=== PATIENT | male | born 1970 | race Caucasian/White ===

== ENCOUNTER 2021-02-08 07:15 | Outpatient (REF) | payer BC, SELFPAY ==
[2021-02-08 08:04] LABS: Alanine Aminotransferase 11 U/L (0-40); Albumin Level 4.3 g/dL (3.5-5.0); Alkaline Phosphatase 70 U/L (39-117); Anion Gap 12 (12-20); Aspartate Amino Transferase 16 U/L (5-37); Bilirubin Total 0.6 mg/dL (0.0-1.0); Blood Urea Nitrogen 10 mg/dL (9-16); Calcium 9.3 mg/dL (8.4-10.2); Carbon Dioxide 26 mmol/L (22-29); Chloride 108 mmol/L (96-108); Cholesterol 200 mg/dL; Estimated Glomerular Filt Rate > 60; Glucose Fasting 94 mg/dL (60-99); HDL Cholesterol 39 mg/dL; LDL Cholesterol Calculated 128 mg/dl; Potassium 4.6 mmol/L (3.3-5.1); Sodium 141 mmol/L (135-145); Triglycerides 165 mg/dL
[2021-02-08 08:27] LABS: TSH reflex Free T4 1.59 uIU/mL (0.32-4.0)
[2021-02-09 05:57] LABS: LDL Cholesterol Direct 125 mg/dL (<100)
== END 2021-02-08 07:16 | disposition home or self-care (01) ==
LOC: HO.LAB 07:15
PROVIDERS: PCP Family Medicine; Visit Provider Family Medicine
DX: Z00.00 Encounter for general adult medical examination without abnormal findings (principal); E78.9 Disorder of lipoprotein metabolism, unspecified
CPT/HCPCS: 36415; 80053; 80061; 83721; 84443

== ENCOUNTER 2021-05-26 08:45 | Outpatient (REF) | payer BC, SELFPAY ==
[2021-05-26 12:10] LABS: Anion Gap 10 (12-20); Blood Urea Nitrogen 13 mg/dL (9-16); Calcium 9.7 mg/dL (8.4-10.2); Carbon Dioxide 28 mmol/L (22-29); Chloride 106 mmol/L (96-108); Cholesterol 226 mg/dL; Estimated Glomerular Filt Rate > 60; Glucose Random 96 mg/dL (60-115); HDL Cholesterol 44 mg/dL; LDL Cholesterol Calculated 138 mg/dl; Potassium 5.1 mmol/L (3.3-5.1); Sodium 139 mmol/L (135-145); Triglycerides 220 mg/dL
[2021-05-26 12:32] LABS: Prostate Specific Antigen Scr 1.01 ng/mL (<0.05-4.0)
[2021-05-27 19:10] LABS: LDL Cholesterol Direct 143 mg/dL (<100)
== END 2021-05-26 08:46 | disposition home or self-care (01) ==
LOC: HO.WFDLDS 08:45
PROVIDERS: Visit Provider Family Medicine
DX: Z00.00 Encounter for general adult medical examination without abnormal findings (principal); Z12.5 Encounter for screening for malignant neoplasm of prostate; E78.5 Hyperlipidemia, unspecified
CPT/HCPCS: 36415; 80048; 80061; 83721; 84153

== ENCOUNTER 2021-08-30 07:21 | Outpatient (REF) | payer BC, SELFPAY ==
[2021-08-30 08:36] LABS: Anion Gap 14 (12-20); Blood Urea Nitrogen 13 mg/dL (9-16); Calcium 9.2 mg/dL (8.4-10.2); Carbon Dioxide 23 mmol/L (22-29); Chloride 107 mmol/L (96-108); Cholesterol 203 mg/dL; Estimated Glomerular Filt Rate > 60; Glucose Random 90 mg/dL (60-115); HDL Cholesterol 41 mg/dL; LDL Cholesterol Calculated 128 mg/dl; Potassium 4.5 mmol/L (3.3-5.1); Sodium 139 mmol/L (135-145); Triglycerides 173 mg/dL
[2021-09-05 19:02] LABS: Testosterone, Total 768 ng/dL (250-1100)
== END 2021-08-30 07:22 | disposition home or self-care (01) ==
LOC: HO.LAB 07:21
PROVIDERS: PCP Family Medicine; Visit Provider Family Medicine
DX: Z00.00 Encounter for general adult medical examination without abnormal findings (principal); N52.9 Male erectile dysfunction, unspecified; E78.5 Hyperlipidemia, unspecified
CPT/HCPCS: 36415; 80048; 80061; 84402; 84403

== ENCOUNTER 2022-01-24 07:07 | Outpatient (REF) | payer BC, SELFPAY ==
[2022-01-24 08:22] LABS: Alanine Aminotransferase 18 U/L (0-40); Albumin Level 4.4 g/dL (3.5-5.0); Alkaline Phosphatase 72 U/L (39-117); Anion Gap 17 (12-20); Aspartate Amino Transferase 17 U/L (5-37); Bilirubin Total 0.6 mg/dL (0.0-1.0); Blood Urea Nitrogen 15 mg/dL (9-16); Calcium 9.1 mg/dL (8.4-10.2); Carbon Dioxide 24 mmol/L (22-29); Chloride 105 mmol/L (96-108); Cholesterol 228 mg/dL; Estimated Glomerular Filt Rate > 60; Glucose Fasting 94 mg/dL (60-99); HDL Cholesterol 44 mg/dL; LDL Cholesterol Calculated 159 mg/dl; Potassium 4.5 mmol/L (3.3-5.1); Sodium 141 mmol/L (135-145); Total Protein 7.1 g/dL (6.5-8.0); Triglycerides 129 mg/dL
[2022-01-24 08:46] LABS: Prostate Specific Antigen Scr 1.02 ng/mL (<0.05-4.0); TSH reflex Free T4 2.04 uIU/mL (0.32-4.0)
[2022-01-24 09:41] LABS: Appearance Urine Clear; Color Urine Yellow; Glucose Urine UA Negative (Negative); Leukocyte Esterase Urine Negative (Negative); Nitrite Urine Negative (Negative); PH 5.5 (5.0-9.0); Urine Blood Negative (Negative); Urine Ketones Negative (Negative); Urine Protein Negative (Neg-Trace)
== END 2022-01-24 07:08 | disposition home or self-care (01) ==
LOC: HO.LAB 07:07
PROVIDERS: PCP Family Medicine; Visit Provider Family Medicine
DX: Z00.00 Encounter for general adult medical examination without abnormal findings (principal); Z12.5 Encounter for screening for malignant neoplasm of prostate
CPT/HCPCS: 36415; 80053; 80061; 81003; 84153; 84443

== ENCOUNTER 2022-05-02 07:30 | Outpatient (REF) | payer BC, SELFPAY ==
--- NOTE | ~2022-05-02 | XR_ITS ---
EXAMINATION: XR CHEST CLINICAL INFORMATION: Nicotine dependence COMPARISON: None TECHNIQUE: 2 views of the chest were obtained. FINDINGS: The lungs are well-expanded and clear. The heart size and pulmonary vascularity is normal. No gross bony abnormality seen. XR/XR chest 2V IMPRESSION: Unremarkable chest exam.
[2022-05-02 09:04] LABS: Cholesterol 167 mg/dL; HDL Cholesterol 41 mg/dL; LDL Cholesterol Calculated 97 mg/dl; Triglycerides 146 mg/dL
== END 2022-05-02 07:31 | disposition home or self-care (01) ==
LOC: HO.LAB 07:30
PROVIDERS: Visit Provider Family Medicine
DX: Z00.00 Encounter for general adult medical examination without abnormal findings (principal); E78.5 Hyperlipidemia, unspecified; F17.200 Nicotine dependence, unspecified, uncomplicated
CPT/HCPCS: 36415; 71046; 80061

== ENCOUNTER 2022-08-07 10:00 | Outpatient (RCR) | payer BC, SELFPAY ==
[2022-06-12 11:01] VITALS: BP 142/93; PULSE 81
--- NOTE | 2022-06-12 11:54 | MHC.PT.EP ---
[facility] [place] Office [place] Office [place] Office [address] Kaycee Hahn [address] [phone] F: [phone] F: [phone] F: [phone] F: [phone] Physical Therapy Plan of Care Date of Evaluation: Date of Surgery: NA Diagnosis: Dorsalgia Assessment: Sabino is a 52 year old male who is referred to PT for dorsalgia . He reports of having pain along R shoulder blade for about a year. He denies any trauma or falls and reports of having pain only with driving his tractor trailer. He has no pain with any other ADLS or driving his car. On PT examinations he reports of having 8/10 pain along medial border of R scapula, TTP along thoracic paraspinals, decreased thoracic ROM, decreased scap muscle strength and altered posture. Due to these impairments he has pain with driving his tractor trailer. He lives with his family and is independent with all ADLS. 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 He would benefit from skilled PT to address the aforementioned impairments and improve tolerance to functional activities. Frequency and Duration: The patient will be seen 2/week for 5 weeks Short Term Goals: 1. Pt will have 50% decrease in pain which will enable him to drive without changing his posture for an hour in 2 weeks. 2. Pt will be able to move trunk through all planes of motion without pain in 3 weeks. Detention Goals: 1. Pt will demonstrate an increase in muscle strength by 1 grade which will enable him to drive without pain in 5 weeks. 2. Pt will be independent with HEP for symptom management and maintenance following d/c in 5 weeks. Treatment Plan: Modalities to reduce pain, spasms and effusion. Manual therapy to restore motion and function. Therapeutic exercise to improve strength and flexibility. Neuromuscular re-education for posture and balance. Therapeutic activities to return to functional activities of daily living. Electronically signed by: Charisma Post PT DPT Please sign and return to therapist. Thank you for your referral.
--- NOTE | 2022-08-07 11:07 | MHC.PT.DC ---
[facility] [place] Office [place] Office [place] Office [address] Kaycee Hahn [address] [phone] F: [phone] F: [phone] F: [phone] F: [phone] Physical Therapy Discharge Report Diagnosis: Dorsalgia Date of Surgery: NA Date of Evaluation: 06/12/22 Date of Discharge: 08/07/22 Treatments to Date: 5 Cancellations to Date: 0 No Shows to Date: Discharge Status: Improved Function Independent with HEP Discharge Summary: Sabino has completed 5 PT visits. He has noted significant improvements and is independent with all his HEP. He stated that due to his work schedule and time off needed to attend PT he requested d/c today. He stated that his pain comes in very sporadically and he is aware of what he has to do to manage his symptoms. I reviewed all his HEP with him. Sabino is being d/c from PT today. Electronically signed by: Charisma Post, PT DPT Please sign and return to therapist. Thank you for your referral.
== END 2022-08-07 11:08 | disposition home or self-care (01) ==
LOC: HO.PT 10:00
PROVIDERS: PCP Family Medicine; Visit Provider Family Medicine
DX: M54.9 Dorsalgia, unspecified (principal)
CPT/HCPCS: 97110; 97112; 97140; 97161; 97530

== ENCOUNTER 2023-02-05 08:34 | Outpatient (AMB) | payer BC, SELFPAY ==
[2023-02-05 08:45] VITALS: BP 122/62; PULSE 89; RESP 13; TEMP 37.1; O2SAT 98; BMI 24.0
--- NOTE | 2023-02-05 08:45 | MHC.PC.OV ---
Vital Signs 02/05/23 08:45 Height 6 ft Weight 177 lb 4 oz BMI 24.0 BP 122/62 Blood Pressure Location Rt brachial Position Sitting Respiration 13 Pulse 89 Pulse Source Pulse Oximeter Temp 98.7 F Temp Source Oral Pulse Oximetry (%) 98 Oxygen Delivery Method Room Air Intake Visit Reasons: CPE with f/u labs and health maintenance Intake Note: Patient is here for a yearly physical and he reports he did not get labs done recently but will do them over the weekend. Patient reports his told him he is showing signs of depression. Patient reports he is scheduled for a colonoscopy in April 2023. 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 Medication List - Last Reconciled 02/05/23 by Hugh Raphael MD atorvastatin 20 mg PO BEDTIME 30 days bisacodyl (Dulcolax (bisacodyl)) 10 mg (2 x 5 mg) PO ONCE 1 day peg 3350-electrolytes [id number] -5.86 gram 240 mL PO Q10M sildenafil 100 mg PO DAILY PRN 30 days Tobacco use date assessed: 02/05/23 Dental Screening Dental Screen Date: 02/05/23 Did you have a dental visit in the last 12 months?: Yes Did you have a dental problem in the last 6 months where you did not have access to dental care?: No Was dental information given to patient?: Patient has dentist HPI CPE with f/u labs and health maintenance HPI Details 52 y/o male presents for a CPE with f/u labs and health maintenance. No recent labs to review. Questionnaire tested positive for anxiety/depression. He notes ongoing stressors. HPI Comments History of Present Illness Details Documentation assistance for Hugh Raphael MD, was provided by Demario Hsieh,?Director Agricultural Services on 02/05/2023 9:48 AM EST. Aponte, Dr. Raphael, have read, observed, and verified documentation.? [facility] Medical History Tennis elbow syndrome Surgical History History of left knee surgery Family History Mother Substance use disorder Father No problems noted. 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 1. Little interest or pleasure in doing things: not at all 2. Feeling down, depressed, or hopeless: not at all 3. Trouble falling or staying asleep, or sleeping too much: several days 4. Feeling tired or having little energy: not at all 5. Poor appetite or overeating: not at all 6. Feeling bad about yourself - or that you are a failure or have let yourself or your family down: several days 7. Trouble concentrating on things, such as reading the newspaper or watching television: several days 8. Moving or speaking so slowly that other people could have noticed. Or the opposite - being so fidgety or restless that you have been moving around a lot more than usual: not at all 9. Thoughts that you would be better off or of hurting yourself in some way: not at all Total score: 3 Depression Screening Interpretation: Negative Depression Screening Done: Yes 54922 - PHQ-9 Billing: Yes Source: Developed by Drs. Allen Lao, Susy Copeland, Alton Robison and colleagues, with an educational suman from [employer]. Thrive Questionnaire Date Thrive assessed: 05/08/22 YONATAN-7 AMB Questionnaire YONATAN-7 Date YONATAN - 7 assessed: 02/05/23 Feeling nervous, anxious, or on edge: 1 = Several days Not being able to stop or control worryin = Several days Worrying too much about different things: 1 = Several days Trouble relaxin = Not at all Being so restless that it is hard to sit still: 0 = Not at all Becoming easily annoyed or irritable: 2 = More than half the days Feeling afraid as if something awful might happen: 1 = Several days Total YONATAN-7 score (0-4 normal; 5-9 mild; 10-14 moderate; 15-21 severe): 6 Source: Developed by Drs. Allen Lao, Susy Copeland, Alton Robison and colleagues, with an educational suman from [employer]. YONATAN-7 Assessment Billing YONATAN-7 Assessment Tool: YONATAN-7 Assessment 42205 Review of Systems Const Denies chills, Denies fatigue, Denies fever(s), Denies headache(s) and Denies weakness Eyes Denies change in vision ENT Denies dizziness, Denies headache(s), Denies hearing loss, Denies nasal congestion, Denies sinus pain, Denies sinus pressure and Denies sore throat Card Denies chest pain, Denies lightheadedness, Denies dyspnea and Denies other (palpitations) Resp Denies cough, Denies dyspnea and Denies wheezing GI Denies abdominal pain, Denies melena, Denies hematochezia, Denies change in bowel habits, Denies dyspepsia and Denies nausea Denies hematuria and Denies dysuria Musc Denies abnormal gait, Denies myalgias, Denies arthralgias, Denies numbness and Denies tingling Skin/Breast Denies rash, Denies unusual bruising and Denies wounds Neuro Denies abnormal gait, Denies dizziness, Denies headache(s), Denies memory loss, Denies numbness, Denies Sensory deficit (Neuro), Denies tingling and Denies weakness Psych Reports anxiety, Reports depression and Denies memory loss Endo Denies cold intolerance, Denies fatigue, Denies heat intolerance, Denies polydipsia and Denies polyuria Trevor/Lymph Denies easy bleeding and Denies easy bruising Aller/Immun Denies wheezing Physical exam (Primary Care) Vital Signs: Last Vital Signs Temp 98.7 F 02/05/23 08:45 Pulse 89 02/05/23 08:45 Resp 13 02/05/23 08:45 BP 122/62 02/05/23 08:45 Pulse Ox 98 02/05/23 08:45 Oxygen Delivery Method Room Air 02/05/23 08:45 BMI result Body Mass Index 24.0 Tobacco/Smoking Status: Tobacco use Status Tobacco use date assessed 02/05/23 02/05/23 08:53 Patient Tobacco Use Status Current someday Tobacco 02/05/23 08:45 Tobacco use type Cigarette,Cigar 02/05/23 08:45 e-Cigarette/Vaping Use Never Used 02/05/23 08:45 PHQ-9: PHQ-9 Score PHQ-9: Total score 3 02/05/23 09:45 Depression Screening Interpretation: Negative Thrive Assessment: Date of Thrive Assessment Date Thrive assessed 05/08/22 02/05/23 08:45 Const General: no acute distress, well developed, alert and awake Nutritional Appearance: well nourished Orientation/consciousness: patient oriented x3 HENMT Head: Yes normocephalic and Yes atraumatic Ears: hearing grossly normal bilaterally and TM's normal bilaterally General nose exam: Normal external nose present and Normal nares present Mouth: Normal oral and palatal mucosa present and moist mucous membranes Teeth and gingiva: dentition normal Throat: Yes posterior oropharynx normal Eyes General: appearance normal, both eyes and all related structures Pupils: Equal, round and reactive pupils present and Pupil accommodation reflex normal EOM: EOMs intact bilaterally Neck Neck: Yes normal visual inspection, Yes no lymphadenopathy and Yes trachea midline Thyroid: Thyroid normal Carotids: no bruits Lymphatic: no lymphadenopathy noted Chest Chest palpation & inspection: normal inspection of the chest Resp Effort & Inspection: normal respiratory effort Auscultation: clear to auscultation bilaterally Cardio Rate: regular rate Rhythm: regular rhythm Heart sounds: S1 normal heart sound present, S2 normal heart sound present, no gallops, no murmurs and no rubs Bruits: no abdominal aortic bruits and no carotid bruits GI Palpation (GI): No Abdominal aortic bruit present, Soft to palpation, nontender, No hepatosplenomegaly present and No Rebound tenderness present Auscultation: normal bowel sounds General: Yes no CVA tenderness Back/Spine/Pelvis Back: no CVA tenderness Cervical Spine: cervical ROM normal and No Cervical spine tenderness Thoracic/Lumbar Spine: thoraco-lumbar ROM normal, No pain with thoraco-lumbar ROM, No thoracic spinal tenderness and No lumbar spinal tenderness Skin Lesions: no lesions Rashes: no rashes Trauma: no lacerations or abrasions Wounds: no wounds Nails: normal Neuro General: patient oriented x3 Cranial nerves: Yes Equal, round and reactive pupils present Cognition (Neuro): normal cognition Gait exam (Neuro): Normal gait present Motor exam (neuro): 5/5 motor strength present throughout Sensory Exam: No Sensory deficit (Neuro) Deep tendon reflexes (DTR's): Right patellar reflex intensity grade: 2+ and Left patellar reflex intensity grade: 2+ Extrem General: Yes normal to inspection and No edema Psych Appearance: grossly normal Affect: Anxious affect present Attitude: cooperative Thought process: Normal thought process present Assessment and Plan Assessment & Plan (1) Adult general medical exam: Code(s): Z00.00 - Encounter for general adult medical examination without abnormal findings Plan: 52-year-old?male?presents?for?complete?physical?exam Encouraged?healthy?diet?with?active?lifestyle?and?plenty?of?exercise (2) Anxiety and depression: Code(s): F41.9 - Anxiety disorder, unspecified; F32.A - Depression, unspecified Plan: Patient?notes?stressors?and?anxiety Referred?to?nurse?navigator?for?connection?with?a?therapist Start?citalopram (3) Screening for prostate cancer: Code(s): Z12.5 - Encounter for screening for malignant neoplasm of prostate Plan: Check?PSA Mild?changes?in?stream.??If?borderline,?may?need?KARLOINA (4) Screening for colon cancer: Code(s): Z12.11 - Encounter for screening for malignant neoplasm of colon Plan: Patient?is?scheduled?for?colonoscopy?in?April Orders: Orders Comprehensive [place]. Panel Fast Today Z00.00 - Encounter for general adult medical examination without abnormal findings Microalbumin, Random (w Creat) Today I10 - Essential (primary) hypertension Lipid Panel Today Z00.00 - Encounter for general adult medical examination without abnormal findings Prostate Specific Antigen Scr Today Z12.5 - Encounter for screening for malignant neoplasm of prostate TSH reflex Free T4 Today Z00.00 - Encounter for general adult medical examination without abnormal findings UA and rflx microscopic Today Z00.00 - Encounter for general adult medical examination without abnormal findings Referrals Nurse Navigator Referral F32.A - Depression, unspecified, F41.9 - Anxiety disorder, unspecified Medications: New citalopram 10 mg PO DAILY 30 tabs 1RF 30 days tamsulosin (Flomax) 0.4 mg PO BEDTIME 30 caps 1RF 30 days Coding Level of Care Code Est Pt Level 3 (73808) Est Pt Prev Care 40-64y(29545) Diagnoses Adult general medical exam Z00.00 Anxiety and depression F41.9; F32.A Screening for prostate cancer Z12.5 Screening for colon cancer Z12.11 Additional Codes YONATAN-7 Assessment Billing - YONATAN-7 Assessment Tool: YONATAN-7 Assessment 15901 ([id number])
== END 2023-02-05 10:10 | disposition home or self-care (01) ==
PROVIDERS: PCP Family Medicine; Visit Provider Family Medicine
DX: Z00.00 Encounter for general adult medical examination without abnormal findings (principal); F41.9 Anxiety disorder, unspecified; F32.A Depression, unspecified
CPT/HCPCS: 99396

== ENCOUNTER 2023-02-27 07:08 | Outpatient (REF) | payer BC, SELFPAY ==
[2023-02-27 08:10] LABS: Alanine Aminotransferase 19 U/L (0-40); Albumin Level 4.2 g/dL (3.5-5.0); Alkaline Phosphatase 75 U/L (39-117); Anion Gap 11 (12-20); Aspartate Amino Transferase 20 U/L (5-37); Bilirubin Total 0.7 mg/dL (0.0-1.0); Blood Urea Nitrogen 12 mg/dL (9-16); Calcium 9.3 mg/dL (8.4-10.2); Carbon Dioxide 26 mmol/L (22-29); Chloride 106 mmol/L (96-108); Cholesterol 171 mg/dL (<200); Estimated Glomerular Filt Rate > 60; Glucose Fasting 104 mg/dL (60-99); HDL Cholesterol 43 mg/dL (>40); LDL Cholesterol Calculated 93 mg/dL (<100); Potassium 4.2 mmol/L (3.3-5.1); Sodium 139 mmol/L (135-145); Total Protein 7.3 g/dL (6.5-8.0); Triglycerides 175 mg/dL (<150)
[2023-02-27 08:26] LABS: TSH reflex Free T4 1.41 uIU/mL (0.32-4.0)
[2023-02-27 08:28] LABS: Prostate Specific Antigen Scr 1.88 ng/mL (<0.05-4.0)
[2023-02-27 08:57] LABS: Appearance Urine Clear; Color Urine Dark Yellow; Glucose Urine UA Negative (Negative); Leukocyte Esterase Urine Trace (Negative); Nitrite Urine Negative (Negative); PH 5.5 (5.0-9.0); Specific Gravity - Urine 1.025 (1.005-1.025); UMIC TRIGGER UA YES; Urine Blood Negative (Negative); Urine Ketones Negative (Negative); Urine Protein Negative (Neg-Trace)
[2023-02-27 09:00] LABS: Bacteria Urine None Seen (None Seen); RBC Urine 0-2 /HPF (0-2); Squamous Epithelial Cell Urine 0-2 /HPF (0-2); WBC Urine 0-5 /HPF (0-5)
[2023-02-27 09:21] LABS: Microalbum/Creatinine Ratio Ur 2.9 ug/mg cr (<30)
== END 2023-02-27 07:09 | disposition home or self-care (01) ==
LOC: HO.LAB 07:08
PROVIDERS: PCP Family Medicine; Visit Provider Family Medicine
DX: Z00.00 Encounter for general adult medical examination without abnormal findings (principal); Z12.5 Encounter for screening for malignant neoplasm of prostate; I10 Essential (primary) hypertension
CPT/HCPCS: 36415; 80053; 80061; 81001; 82043; 82570; 84153; 84443

== ENCOUNTER 2023-04-12 09:33 | Outpatient (AMB) | payer BC, SELFPAY ==
--- NOTE | 2023-04-12 09:38 | A.OFFPC_ITS ---
Vital Signs 04/12/23 09:39 Height 6 ft Weight 180 lb 2 oz BMI 24.4 BP 120/68 Blood Pressure Location Lt brachial Position Sitting Pulse 92 Pulse Source Pulse Oximeter Pulse Oximetry (%) 96 Oxygen Delivery Method Room Air Intake Visit Reasons: f/u CPE-labs and anxiety/depression Intake Note: Patient is here for a f/u on physical and labs with anxiety and depression. Patient is requesting refill of 10 mg of Atorvastatin, adn he is c/o plantar fasciiitis Allergies No Known Allergies Allergy (Verified 04/12/23 09:47) environmental Allergy (Mild, Uncoded 04/12/23 09:47) hay fever, watery eyes. Tobacco use date assessed: 04/12/23 HPI f/u CPE-labs and anxiety/depression HPI Details 52 y/o male presents to f/u CPE-labs and anxiety/depression. Labs were drawn 02/27/23. Reviewed labs with pt. Triglycerides 175. TC 171. LDL 93. HDL 43. He is on artovastatin 20mg. Elevated fasting glucose of 104. A1c today 04/12/23 5.2%. Had started him on citalopram 10mg daily and referred to nurse navigator to connect him with a therapist. Pt notices some improvement on citalopram but does note his does not notice it as much. [facility] Medical History Tennis elbow syndrome Surgical History History of left knee surgery Family History Mother Substance use disorder Father No problems noted. 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 1. Little interest or pleasure in doing things: not at all 2. Feeling down, depressed, or hopeless: not at all 3. Trouble falling or staying asleep, or sleeping too much: not at all 4. Feeling tired or having little energy: not at all 5. Poor appetite or overeating: not at all 6. Feeling bad about yourself - or that you are a failure or have let yourself or your family down: not at all 7. Trouble concentrating on things, such as reading the newspaper or watching television: not at all 8. Moving or speaking so slowly that other people could have noticed. Or the opposite - being so fidgety or restless that you have been moving around a lot more than usual: not at all 9. Thoughts that you would be better off or of hurting yourself in some way: not at all Total score: 0 Depression Screening Interpretation: Negative Depression Screening Done: Yes 96778 - PHQ-9 Billing: Yes Source: Developed by Drs. Allen Lao, Susy Copeland, Alton Robison and colleagues, with an educational suman from [employer]. Thrive Questionnaire Date Thrive assessed: 05/08/22 YONATAN-7 AMB Questionnaire YONATAN-7 Date YONATAN - 7 assessed: 04/12/23 Feeling nervous, anxious, or on edge: 1 = Several days Not being able to stop or control worryin = Several days (when it comes to his kids.) Worrying too much about different things: 0 = Not at all Trouble relaxin = Not at all Being so restless that it is hard to sit still: 0 = Not at all Becoming easily annoyed or irritable: 2 = More than half the days Feeling afraid as if something awful might happen: 2 = More than half the days Total YONATAN-7 score (0-4 normal; 5-9 mild; 10-14 moderate; 15-21 severe): 6 Source: Developed by Drs. Allen Lao, Alton Cheng and colleagues, with an educational suman from [employer]. YONATAN-7 Assessment Billing YONATAN-7 Assessment Tool: YONATAN-7 Assessment [id number] Physical exam (Primary Care) Vital Signs: Last Vital Signs Pulse 92 04/12/23 09:39 BP 120/68 04/12/23 09:39 Pulse Ox 96 04/12/23 09:39 Oxygen Delivery Method Room Air 04/12/23 09:39 BMI result Body Mass Index 24.4 Tobacco/Smoking Status: Tobacco use Status Tobacco use date assessed 04/12/23 04/12/23 09:54 Patient Tobacco Use Status Current someday Tobacco 04/12/23 09:54 Tobacco use type Cigarette,Cigar 04/12/23 09:54 e-Cigarette/Vaping Use Never Used 04/12/23 09:54 PHQ-9: PHQ-9 Score PHQ-9: Total score 0 04/12/23 09:54 Depression Screening Interpretation: Negative Thrive Assessment: Date of Thrive Assessment Date Thrive assessed 05/08/22 04/12/23 09:54 Results AMB Hemoglobin A1c AMB Hemoglobin A1c 5.2 % Last Edit by Shwetha Dewey CMA on 04/12/23 10:09 Results Reviewed Results Reviewed: Laboratory Last Values Hgb A1c (Clinic) 5.2 % (4.0-6.0) 04/12/23 10:03 Assessment and Plan Assessment & Plan (1) Anxiety and depression: Code(s): F41.9 - Anxiety disorder, unspecified; F32.A - Depression, unspecified Plan: Patient?says?he?notes?some?improvement?in?irritability/anxiety Will?increase?citalopram?to?20?mg?daily Follow-up?in?a?couple?of?months (2) Hyperlipidemia: Code(s): E78.5 - Hyperlipidemia, unspecified Plan: Some?elevations?in?his?triglycerides?and?I?have?encouraged?changes?to?his?diet Continue?atorvastatin (3) Elevated fasting glucose: Code(s): R73.01 - Impaired fasting glucose Plan: A1c?is?within?normal?limits Likely?mild?insulin?resistance Watch?sugars?and?starches?in?diet (4) Plantar fasciitis: Code(s): M72.2 - Plantar fascial fibromatosis Plan: Continue?exercises?and?NSAIDs?as?needed (5) Erectile dysfunction: Code(s): N52.9 - Male erectile dysfunction, unspecified Plan: Had?some?improvements?with?sildenafil Patient?would?like?to?discuss?other?options?with?Urology-referred Orders: Orders AMB Hemoglobin A1c Today Z13.9 - Encounter for screening, unspecified Referrals Urology Referral N52.9 - Male erectile dysfunction, unspecified Medications: Changed From atorvastatin 20 mg PO BEDTIME 30 days 30 tabs 3RF To atorvastatin 10 mg PO BEDTIME 90 days 90 tabs 3RF From citalopram 10 mg PO DAILY 30 days 30 tabs 1RF To citalopram 20 mg PO DAILY 90 days 90 tabs 1RF Coding Level of Care Code Est Pt Level 4 (42652) Diagnoses Anxiety and depression F41.9; F32.A Hyperlipidemia E78.5 Elevated fasting glucose R73.01 Plantar fasciitis M72.2 Erectile dysfunction N52.9 Additional Codes YONATAN-7 Assessment Billing - YONATAN-7 Assessment Tool: YONATAN-7 Assessment 54017 ([id number])
[2023-04-12 09:39] VITALS: BP 120/68; PULSE 92; O2SAT 96; BMI 24.4
== END 2023-04-12 10:36 | disposition home or self-care (01) ==
PROVIDERS: PCP Family Medicine; Visit Provider Family Medicine
DX: E78.5 Hyperlipidemia, unspecified (principal); F41.9 Anxiety disorder, unspecified; F32.A Depression, unspecified; R73.01 Impaired fasting glucose; M72.2 Plantar fascial fibromatosis; N52.9 Male erectile dysfunction, unspecified
CPT/HCPCS: 83036; 99214

== ENCOUNTER 2023-05-07 10:19 | Day surgery (SDC) | payer BC, SELFPAY ==
[2023-05-05 07:39] VITALS: BMI 24.4
--- NOTE | 2023-05-06 10:14 | P.CONAN_ITS ---
HPI - Anesthesia Eval Consult details Narrative: 52yo M for Colonoscopy PMF Active Problems Active Problems: All Active Problems (Updated 04/12/23 @ 09:58 by Demario Hsieh) Elevated fasting glucose (Acute) Anxiety and depression (Acute) Upper back pain (Acute) Screening for colon cancer (Acute) Plantar fasciitis (Acute) Erectile dysfunction (Acute) Hyperlipidemia (Acute) Screening for prostate cancer (Acute) Itching of ear (Acute) GERD (gastroesophageal reflux disease) (Acute) Smoker (Acute) Adult general medical exam (Acute) Past Medical History Medical History (Updated 05/06/23 @ 10:15 by Babita King NP) Hyperlipidemia GERD (gastroesophageal reflux disease) Smoker Tennis elbow syndrome Family History Family History Mother Substance use disorder Father No problems noted. 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 Exam Height,Weight and Vital Signs: Height 6 ft Weight 81.647 kg Pertinent Lab Results Pertinent Lab Results: Laboratory Tests 02/11/19 02/27/23 07:15 07:22 WBC 7.3 Hgb 15.4 Hct 44.7 Plt Count 249 Sodium 139 Potassium 4.2 Chloride 106 Carbon Dioxide 26 BUN 12 Creatinine 1.08 Assessment and Plan Assessment Anesthesia Assessment: Chart Reviewed
--- NOTE | 2023-05-07 09:00 | HO.ANESPROP2 ---
[facility] Active Problems Active Problems: All Active Problems (Updated 05/06/23 @ 10:15 by Babita King NP) Elevated fasting glucose (Acute) Anxiety and depression (Acute) Upper back pain (Acute) Screening for colon cancer (Acute) Plantar fasciitis (Acute) Erectile dysfunction (Acute) Screening for prostate cancer (Acute) Itching of ear (Acute) Adult general medical exam (Acute) Past Medical History Medical History Hyperlipidemia GERD (gastroesophageal reflux disease) Smoker Tennis elbow syndrome Family History Family History Mother Substance use disorder Father No problems noted. Sister Substance use disorder Family history of problems with anesthesia: No Surgical History Surgical History History of left knee surgery History of Problems with Anesthesia: No Social History Social History Housing: House Patient Tobacco Use Status: Current everyday Tobacco user Tobacco use type: Cigarette Cigarette Packs Per Day: 0.5 Smoked in Last 30 Days: Yes e-Cigarette/Vaping Use: Never Used Patient Interested in Nicotine Replacement: No Second Hand Smoke Exposure: No Are you DNR?: No Advance Directives: No Advance Directives Information Provided: Yes Nutrition Risks: No Nutritional Risk service: Yes Current occupational status: employed 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 Exam Height,Weight and Vital Signs: Height 6 ft Weight 81.647 kg Airway Mallampati Class: II (cap lateraly) TM Dist: >3cm Neck ROM: Full Heart: rrr Lungs: cta Assessment and Plan Assessment Anesthesia Assessment: Anesthesia Plan Discussed and Chart Reviewed Final Anesthetic Review Family History of Problems with Anesthesia: No History of Problems with Anesthesia: No NPO: Yes ASA Class: II Final Preanesthetic Review: No Changes in Pt Med Stat, Meds/Allgs Chart Reviewed and Consent Obtained/Reviewed Patient Risk: Intermediate Procedure Risk: Low Anesthetic Plan Anesthetic Plan: MAC: Disposition: Standard PACU
[2023-05-07 10:31] VITALS: BMI 23.8
[2023-05-07] MEDS: Lactated Ringers 1,000 ML 100 ML IVCONT (10:43)
[2023-05-07 10:51] VITALS: BP 119/82; PULSE 82; RESP 18; TEMP 36.7; O2SAT 98
--- NOTE | 2023-05-07 11:21 | MHC.SHP ---
Pre-Procedural Eval Section A Date of Service: 05/07/23 The patient is an INPATIENT: No The History & Physical has been completed within 30 days and I have reviewed it.: No Section B Chief Complaint: Colon cancer screening, direct access colonoscopy Details of Present Illness: Pt denies recent change in bowel habits or rectal bleeding Relevant Family History (Specify if Yes): No Relevant Social History: Tobacco Use Present Medications: see Short Stay Collaborative assessment Medical History: Significant History (Tennis elbow syndrome) History of Previous Operations: Relevant previous surgery/procedure and date(s) (History of knee surgery) Allergies: Allergies Allergy/AdvReac Type Severity Reaction Status Date / Time No Known Allergies Allergy Verified 05/07/23 10:51 environmental Allergy Mild hay fever, Uncoded 05/07/23 10:51 watery eyes. Review of Systems Sugical H&P ROS: Negative: Constitution, Cardiovascular, Respiratory and Gastrointestinal Exam Surgical H&P Exam: Normal: Heart, Normal: Lungs, Normal: Extremities and Normal: Abdomen Plan Diagnosis/Plan: Change (proceed with colonoscopy) I have reviewed the history and physical and performed a pertinent physical examination on my patient. No changes have occurred unless specified. Time Spent With Patient Time: Total time managing care of this patient today ____ minutes.
--- NOTE | 2023-05-07 11:27 | W.PM.OPN ---
Operative Note Operative Note Date of Service: 05/07/23 Narrative: COLONOSCOPY TILL CECUM WITH BIOPSIES AND SNARE POLYPECTOMY Pre-op diagnosis: Colon cancer screening (1st colonoscopy) Post-op diagnosis:? Colon polyps, diverticulosis, hemorrhoids Endoscopist:? Jessica Cadet MD Anesthesia:?MAC Consent: Indications for the procedure and potential complications of bleeding, perforation, reaction to medications and missed diagnosis were discussed with the patient and informed consent was obtained. Instrument: Olympus CF H 190 L variable stiffness adult colonoscope Monitoring: Vital signs and clinical assessment, intermittent blood pressure monitoring, continuous EKG monitoring, Pulse oximetry and Carbon Dioxide monitoring were done throughout the procedure. Please see anesthesia flowsheet. Colon withdrawl time was 16 minutes. Procedure: The patient was placed in the left lateral decubitis position and pre-procedure medications were administered. After a digital rectal examination of the ano-rectum, the video colonoscope was inserted into the rectum and advanced through the colon to the cecum. The colonoscope was slowly withdrawn in a retrograde panoramic fashion and the colon mucosa was carefully examined including a retroflexed view of the rectum. Findings and interventions are described below. Procedure Difficulty: Without difficulty Findings: Terminal Ileum: Not evaluated Cecum: Normal Ascending Colon: A 10-12 mm sessile polyp at the hepatic flexure - removed with a cold snare Transverse Colon: Normal Descending Colon: Normal Sigmoid Colon: A 3-4 mm diminutive appearing polyp - removed with a cold biopsy. Moderate diverticulosis Rectum: Normal Ano-rectum: Moderate internal hemorrhoids Colon preparation: Excellent [place] Bowel Preparation Scale Right colon; 3 Transverse colon: 3 Left colon; 3 (0 = Unprepared colon segment with mucosa not seen due to solid stool that cannot be cleared. 1 = Portion of mucosa of the colon segment seen, but other areas of the colon segment not well seen due to staining, residual stool and/or opaque liquid. 2 = Minor amount of residual staining, small fragments of stool and/or opaque liquid, but mucosa of colon segment seen well. 3 = Entire mucosa of colon segment seen well with no residual staining, small fragments of stool or opaque liquid) Impression and Post Procedure Diagnosis: Colonoscopy Findings: One medium sized and one small polyps removed Moderate diverticulosis seen in the sigmoid colon Moderate hemorrhoids on retroflexed exam. Plan: I will send a letter with pathology results Repeat Colonoscopy interval based on path results - in 3-5 years if polyps are adenomatous and 10 years if polyps are hyperplastic. Above findings were reviewed with the patient and colon polyps and diverticulosis handouts were given in the discharge area
[2023-05-07 12:01] VITALS: BP 101/61; PULSE 61; RESP 16; TEMP 36.6; O2SAT 97
[2023-05-07 12:16] VITALS: BP 110/65; PULSE 70; RESP 16; O2SAT 98
[2023-05-07 12:30] VITALS: BP 111/69; PULSE 66; RESP 16; TEMP 36.8; O2SAT 97
== END 2023-05-07 13:10 | disposition home or self-care (01) ==
PROVIDERS: PCP Family Medicine; Visit Provider Internal Medicine Gastroenterology
PROC: 0DJD8ZZ Inspection of Lower Intestinal Tract, Via Natural or Artificial Opening Endoscopic (ICD-10-PCS; CPT 45378; principal; 2023-05-07 11:00)
DX: Z12.11 Encounter for screening for malignant neoplasm of colon (principal); D12.2 Benign neoplasm of ascending colon; K63.5 Polyp of colon; K57.30 Diverticulosis of large intestine without perforation or abscess without bleeding; K64.8 Other hemorrhoids; K21.9 Gastro-esophageal reflux disease without esophagitis; E78.5 Hyperlipidemia, unspecified; Z79.899 Other long term (current) drug therapy; F17.210 Nicotine dependence, cigarettes, uncomplicated
CPT/HCPCS: 45385; 45380; 88305; J2704

== ENCOUNTER → 2023-05-07 10:19 | Outpatient (BNV) | payer BC, SELFPAY | PROVIDERS: PCP Family Medicine; Visit Provider Internal Medicine Gastroenterology | DX: Z12.11 Encounter for screening for malignant neoplasm of colon (principal); K63.5 Polyp of colon; K57.30 Diverticulosis of large intestine without perforation or abscess without bleeding; K64.8 Other hemorrhoids | CPT/HCPCS: 45380; 45385 ==

== ENCOUNTER 2023-05-31 08:38 | Outpatient (AMB) | payer BC, SELFPAY ==
--- NOTE | 2023-05-31 08:48 | MHC.OFFVIS ---
Intake Intake Visit Reasons: erective dysfunction Intake Note: New Patient presents for initial visit erectile dysfunction Urology Medications: tamsulosin Blood Thinner: none Architectural Inspector Required: No Accompanied by: Self / Same As Patient Allergies No Known Allergies Allergy (Verified 05/31/23 09:36) environmental Allergy (Mild, Uncoded 05/31/23 09:36) hay fever, watery eyes. Medication List - Last Reconciled 05/31/23 by ROLANDO Redding-PRIYA atorvastatin 20 mg PO BEDTIME citalopram 20 mg PO DAILY 90 days tamsulosin (Flomax) 0.4 mg PO BEDTIME 30 days HPI HPI Comments History of Present Illness Details Sabino is a 53-year-old male patient of Dr. Raphael. He has a past medical history of hyperlipidemia, GERD, nicotine dependence, and tennis elbow syndrome. He presents to the office today as a new patient for low libido and erectile dysfunction. In discussion with the patient today he reports noting low libido and ED started approximately 1 year ago when he started his atorvastatin for his hypercholesteremia. He also reports noting retrograde ejaculation. Discussed at length side effects of medications and causes for low libido and erectile dysfunction. He reports having come off of his medications and felt low libido and ED improved and truly believes his medications or causing these issues. Discussed obtaining testosterone for further assessment evaluation. He reports to be happy with current voiding parameters on 0.4 mg of Flomax daily. He otherwise denies urinary urgency, urinary frequency, incontinence, nocturia, hematuria, dysuria, foul smelling urine, changes to urinary stream, flank pain, fever, and or chills. He is happy with his current voiding parameters. Discuss trial of alfuzosin verses Flomax given reports of retrograde ejaculation however patient would like to think about this. In office urinalysis results reviewed with the patient today. Discussed at length lifestyle modifications to assist with low libido and erectile dysfunction. When asked he denies any signs and symptoms of sleep apnea. In review of patient's chart it appears PSAs are as follows 05/17--1.0, 02/14--1.0, 03/18--1.9 Testosterone 09/14--768 He otherwise offers no other issues or concerns at this time. [facility] Medical History Hyperlipidemia GERD (gastroesophageal reflux disease) Smoker Tennis elbow syndrome Surgical History History of left knee surgery Family History Mother Substance use disorder Father No problems noted. 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 Current occupational exposures/hazards: No Cognitive needs: No Hearing needs: No Vision needs: No Review of Systems Const Reports no additional complaints Eyes Reports no additional complaints ENT Reports no additional complaints Card Reports as per HPI Resp Reports no additional complaints GI Reports as per HPI Reports as per HPI Musc Reports as per HPI Neuro Reports no additional complaints Psych Reports no additional complaints Endo Reports no additional complaints Trevor/Lymph Reports no additional complaints Aller/Immun Reports no additional complaints Physical Exam Const General: cooperative, healthy appearing, comfortable, no acute distress, well developed, alert and awake Nutritional Appearance: thin Orientation/consciousness: patient oriented x3 Limitations: no limitations HEENT Head: Yes normal to inspection, Yes normocephalic and Yes atraumatic Ears: hearing grossly normal bilaterally Eyes General: appearance normal, both eyes and all related structures Neck Neck: Yes normal visual inspection and Yes trachea midline Chest Chest palpation & inspection: normal inspection of the chest Resp Effort & Inspection: normal respiratory effort and able to speak in complete sentences Cardio Rate: regular rate GI Inspection: Yes normal to inspection General: Yes no CVA tenderness Back/Spine/Pelvis Back: no CVA tenderness Skin General skin exam: no rashes or lesions noted Neuro General: patient oriented x3 Extrem General: Yes normal to inspection Psych Appearance: grossly normal and well kempt Mental Status: mental status grossly normal Speech and movement: Normal speech and movement present and Clear speech present Affect: normal affect Attitude: cooperative Thought process: Normal thought process present Thought content: Normal thought content present Insight: Fair insight present (Psych) Judgement: Fair judgement present (Psych) Results AMB Urinalysis, Automated UA Leukoctes 15 Ana/uL Last Edit by Nyasia Joel on 05/31/23 09:08 UA Nitrite Negative Last Edit by Nyasia Joel on 05/31/23 09:08 UA Urobilinogen 0.2 mg/dL Last Edit by Nyasia Joel on 05/31/23 09:08 UA Protein 0 mg/dL Last Edit by Nyasia Joel on 05/31/23 09:08 UA pH 5.5 Last Edit by Nyasia Joel on 05/31/23 09:08 UA Blood 0 Sushil/uL Last Edit by Nyasia Joel on 05/31/23 09:08 UA Specific [place] 1.025 Last Edit by Nyasia Joel on 05/31/23 09:08 UA Ketone Negative Last Edit by Nyasia Joel on 05/31/23 09:08 UA Bilirubin 0 mg/dL Last Edit by Nyasia Joel on 05/31/23 09:08 UA Glucose 0 mg/dL Last Edit by Nyasia Joel on 05/31/23 09:08 Results Reviewed Results Reviewed: Laboratory Last Values Urine pH (Auto) 5.5 05/31/23 08:58 Specific [place] (Auto) 1.025 05/31/23 08:58 Urine Protein (Auto) 0 mg/dL 05/31/23 08:58 Glucose (UA)(Auto) 0 mg/dL 05/31/23 08:58 Urine Ketones (Auto) Negative 05/31/23 08:58 Urine Blood (Auto) 0 Sushil/uL 05/31/23 08:58 Urine Nitrite (Auto) Negative 05/31/23 08:58 Urine Bilirubin (Auto) 0 mg/dL 05/31/23 08:58 Urine Urobilinogen (Auto) 0.2 mg/dL 05/31/23 08:58 Leukocyte Esterase (Auto) 15 Ana/uL 05/31/23 08:58 Assessment & Plan Assessment & Plan (1) Low libido: Code(s): R68.82 - Decreased libido (2) Erectile dysfunction: Code(s): N52.9 - Male erectile dysfunction, unspecified Plan In office urinalysis results reviewed with the patient today; as noted above. Discussed at length potential causes for low libido and erectile dysfunction. Discussed at length lifestyle modifications to assist with these issues. Discussed at length treatment options for erectile dysfunction. Discussed, educated, and stressed the importance of quitting/limiting nicotine dependence for overall health and well-being. Will obtain testosterone for further assessment evaluation. Follow-up in 1 month with labs to be completed prior; or sooner with any issues, concerns, and or questions. Orders: Orders AMB Urinalysis Automated Today Z13.9 - Encounter for screening, unspecified Testosterone, Free/Total Today R68.82 - Decreased libido Patient Instructions: The patient had an opportunity to ask questions regarding the treatment plan. All questions were answered. Physical exam, labs, and imaging were discussed and reviewed in detail. As well as risks, benefits, and discussion of treatment choices. No major barriers to understanding were identified. The patient expressed understanding and agreement with the above treatment plan. The patient was made aware they should contact our office by phone for worsening of their current condition, the appearance of new symptoms, or with any questions or concerns. Compliance is encouraged with any medications and follow up testing that is ordered. It is a privilege to be allowed the opportunity to participate in? your urological care.? Again, if you have any questions or concerns If you have any questions or concerns please do not hesitate to contact me. The office is [phone]. This note is constructed using voice recognition software. While every effort has been made to ensure accuracy information technology administrator errors may have been included. Yours sincerely, ZEN Redding Coding Level of Care Code New Pt Level 3 (02378) Diagnoses Low libido R68.82 Erectile dysfunction N52.9
== END 2023-05-31 09:30 | disposition home or self-care (01) ==
PROVIDERS: PCP Family Medicine; Visit Provider Nurse Practitioner Family
DX: R68.82 Decreased libido (principal); N52.9 Male erectile dysfunction, unspecified; Z13.9 Encounter for screening, unspecified
CPT/HCPCS: 99203

== ENCOUNTER → 2023-05-31 08:38 | Outpatient (BNVA) | payer BC, SELFPAY | PROVIDERS: PCP Family Medicine; Visit Provider Nurse Practitioner Family | DX: N52.9 Male erectile dysfunction, unspecified (principal); R68.82 Decreased libido | CPT/HCPCS: 81003 ==

== ENCOUNTER 2023-06-05 09:33 | Outpatient (REF) | payer BC, SELFPAY ==
[2023-06-05 10:58] LABS: Appearance Urine Clear; Color Urine Dark Yellow; Glucose Urine UA Negative (Negative); Leukocyte Esterase Urine Small (1+) (Negative); Nitrite Urine Negative (Negative); PH 5.5 (5.0-9.0); Specific Gravity - Urine 1.025 (1.005-1.025); UMIC TRIGGER UA YES; Urine Blood Negative (Negative); Urine Ketones Trace mg/dL (Negative); Urine Protein Negative (Neg-Trace)
[2023-06-05 11:02] LABS: Bacteria Urine None Seen (None Seen); Hyaline Casts Urine 0-2 /LPF (0-2); RBC Urine 0-2 /HPF (0-2); Squamous Epithelial Cell Urine 0-2 /HPF (0-2)
[2023-06-05 11:13] LABS: Alanine Aminotransferase 19 U/L (0-40); Albumin Level 4.1 g/dL (3.5-5.0); Alkaline Phosphatase 81 U/L (39-117); Anion Gap 11 (12-20); Aspartate Amino Transferase 22 U/L (5-37); Bilirubin Total 0.4 mg/dL (0.0-1.0); Blood Urea Nitrogen 12 mg/dL (9-16); Calcium 9.1 mg/dL (8.4-10.2); Carbon Dioxide 26 mmol/L (22-29); Chloride 106 mmol/L (96-108); Cholesterol 157 mg/dL (<200); Estimated Glomerular Filt Rate > 60; Glucose Fasting 89 mg/dL (60-99); HDL Cholesterol 43 mg/dL (>40); LDL Cholesterol Calculated 91 mg/dL (<100); Potassium 4.4 mmol/L (3.3-5.1); Sodium 139 mmol/L (135-145); Total Protein 7.1 g/dL (6.5-8.0); Triglycerides 119 mg/dL (<150)
[2023-06-05 11:29] LABS: Prostate Specific Antigen Scr 1.82 ng/mL (<0.05-4.0)
[2023-06-05 11:31] LABS: TSH reflex Free T4 1.15 uIU/mL (0.32-4.0)
[2023-06-10 14:14] LABS: Testosterone, Free 69.3 pg/mL (35.0-155.0); Testosterone, Total 447 ng/dL (250-1100)
== END 2023-06-05 09:34 | disposition home or self-care (01) ==
LOC: HO.LAB 09:33
PROVIDERS: PCP Family Medicine; Visit Provider Nurse Practitioner Family
DX: Z00.00 Encounter for general adult medical examination without abnormal findings (principal); Z12.5 Encounter for screening for malignant neoplasm of prostate; R68.82 Decreased libido
CPT/HCPCS: 36415; 80053; 80061; 81001; 81003; 84153; 84402; 84403; 84443

== ENCOUNTER 2023-06-07 08:52 | Outpatient (AMB) | payer BC, SELFPAY ==
--- NOTE | 2023-06-07 09:53 | A.OFFPC_ITS ---
Vital Signs 06/07/23 09:59 Weight 179 lb 8 oz BP 126/70 Blood Pressure Location Lt brachial Position Sitting Pulse 103 H Pulse Source Pulse Oximeter Pulse Oximetry (%) 96 Oxygen Delivery Method Room Air Intake Visit Reasons: f/u anxiety/depression Intake Note: Patient is here to follow up on anxiety, depression. Patient would like to discuss side effects of his meds, adverse effect of Cholesterol med, states he has symptoms of ED. Allergies No Known Allergies Allergy (Verified 06/07/23 10:00) environmental Allergy (Mild, Uncoded 06/07/23 10:00) hay fever, watery eyes. Tobacco use date assessed: 06/07/23 Dental Screening Dental Screen Date: 06/07/23 Did you have a dental visit in the last 12 months?: Yes Did you have a dental problem in the last 6 months where you did not have access to dental care?: No Was dental information given to patient?: Patient has dentist HPI f/u anxiety/depression HPI Details 53 y/o male presents to f/u anxiety/depr ession. Had increased citalopram from 10mg to 20mg as he had noted mild improvement when starting this med. Pt notes he thinks citalopram at 20mg has been working for him. He declines any therapy. Labs were drawn 06/05/23. Reviewed labs with pt. Triglycerides 119. TC 157. LDL 91. HDL 43. He is on artovastatin 20mg. [facility] Medical History Hyperlipidemia GERD (gastroesophageal reflux disease) Smoker Tennis elbow syndrome Surgical History History of left knee surgery Family History Mother Substance use disorder Father No problems noted. 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 1. Little interest or pleasure in doing things: not at all 2. Feeling down, depressed, or hopeless: several days 3. Trouble falling or staying asleep, or sleeping too much: several days 4. Feeling tired or having little energy: not at all 5. Poor appetite or overeating: not at all 6. Feeling bad about yourself - or that you are a failure or have let yourself or your family down: not at all 7. Trouble concentrating on things, such as reading the newspaper or watching television: not at all 8. Moving or speaking so slowly that other people could have noticed. Or the opposite - being so fidgety or restless that you have been moving around a lot more than usual: not at all 9. Thoughts that you would be better off or of hurting yourself in some way: not at all Total score: 2 Depression Screening Interpretation: Negative Depression Screening Done: Yes 70147 - PHQ-9 Billing: Yes Source: Developed by Drs. Allen Lao, Susy Copeland, Alton Robison and colleagues, with an educational suman from [employer]. Thrive Questionnaire Date Thrive assessed: 05/08/22 YONATAN-7 AMB Questionnaire YONATAN-7 Date YONATAN - 7 assessed: 06/07/23 Feeling nervous, anxious, or on edge: 0 = Not at all Not being able to stop or control worryin = Not at all Worrying too much about different things: 0 = Not at all Trouble relaxin = Not at all Being so restless that it is hard to sit still: 0 = Not at all Becoming easily annoyed or irritable: 0 = Not at all Feeling afraid as if something awful might happen: 0 = Not at all Total YONATAN-7 score (0-4 normal; 5-9 mild; 10-14 moderate; 15-21 severe): 0 Source: Developed by Drs. Allen Lao, Susy Copeland, Alton Robison and colleagues, with an educational suman from [employer]. YONATAN-7 Assessment Billing YONATAN-7 Assessment Tool: YONATAN-7 Assessment 38161 Review of Systems Const Denies chills, Denies fatigue, Denies fever(s), Denies headache(s) and Denies weakness ENT Denies dizziness, Denies headache(s) and Reports nasal congestion Card Denies chest pain, Denies lightheadedness, Denies dyspnea and Denies other (Palpitations) Resp Denies cough, Denies dyspnea, Denies wheezing and Denies other ( shortness of breath) Musc Denies numbness and Denies tingling Neuro Denies dizziness, Denies headache(s), Denies numbness, Denies tingling, Denies paresthesias and Denies weakness Psych Denies anxiety and Denies depression Endo Denies fatigue Aller/Immun Denies wheezing Physical exam (Primary Care) Vital Signs: Last Vital Signs Pulse 103 H 06/07/23 09:59 BP 126/70 06/07/23 09:59 Pulse Ox 96 06/07/23 09:59 Oxygen Delivery Method Room Air 06/07/23 09:59 Tobacco/Smoking Status: Tobacco use Status Tobacco use date assessed 06/07/23 06/07/23 10:10 Patient Tobacco Use Status Current everyday Tobacco 06/07/23 09:56 Tobacco use type Cigarette 06/07/23 09:56 e-Cigarette/Vaping Use Never Used 06/07/23 09:56 PHQ-9: PHQ-9 Score PHQ-9: Total score 2 06/07/23 10:35 Depression Screening Interpretation: Negative Thrive Assessment: Date of Thrive Assessment Date Thrive assessed 05/08/22 06/07/23 09:56 Const General: no acute distress and well developed Nutritional Appearance: well nourished Orientation/consciousness: patient oriented x3 [facility] Head: Yes normocephalic and Yes atraumatic Eyes General: appearance normal, both eyes and all related structures Pupils: Equal, round and reactive pupils present EOM: EOMs intact bilaterally Resp Effort & Inspection: normal respiratory effort Auscultation: clear to auscultation bilaterally Cardio Rate: regular rate Rhythm: regular rhythm Heart sounds: S1 normal heart sound present, S2 normal heart sound present, no gallops, no murmurs and no rubs Neuro General: patient oriented x3 and gait normal Cranial nerves: Yes Equal, round and reactive pupils present Psych Affect: normal affect Assessment and Plan Assessment & Plan (1) Anxiety and depression: Code(s): F41.9 - Anxiety disorder, unspecified; F32.A - Depression, unspecified Plan: Patient?feels?that?citalopram?is?significantly?helping?control?anxiety/irritabil ity. Continue?current?medication Offered?referral?to?therapist?as?well?but?patient?declines?this?today (2) Hyperlipidemia: Code(s): E78.5 - Hyperlipidemia, unspecified Plan: Lipids?are?well?controlled?but?he?notes?that?his?erectile?dysfunction?has?been?s ignificantly?worse?with?this?medication.??He?discontinued?it?for?a?trial?holiday ?and?ED?resolved. Patient?resumed?it?again?and?ED?returned. Will?discontinue?atorvastatin?and?try?Zetia. Encouraged?diet?low?in?saturated?fats?and?cholesterol?as?his?LDL?cholesterol?was ?about?30?points?above?goal?previously?an d?Zetia?is?significantly?less?efficacious?than?atorvastatin. He?will?recheck?his?lipids?prior?to?next?visit (3) Erectile dysfunction: Code(s): N52.9 - Male erectile dysfunction, unspecified Plan: Followed?by?neurology.??Workup?is?still?ongoing. As?above?however,?his?statin?medication?may?be?significantly?affecting?this. May?changes?to?statin?as?above Follow-up?with?urology Orders: Orders Lipid Panel Today E78.5 - Hyperlipidemia, unspecified, Z00.00 - Encounter for general adult medical examination without abnormal findings Comprehensive [place]. Panel Fast Today E78.5 - Hyperlipidemia, unspecified, Z00.00 - Encounter for general adult medical examination without abnormal findings Microalbumin, Random (w Creat) Today I10 - Essential (primary) hypertension, R73.01 - Impaired fasting glucose Medications: New ezetimibe (Zetia) 10 mg PO DAILY 30 tabs 2RF 30 days Coding Level of Care Code Est Pt Level 4 (99218) Diagnoses Anxiety and depression F41.9; F32.A Hyperlipidemia E78.5 Erectile dysfunction N52.9 Additional Codes YONATAN-7 Assessment Billing - YONATAN-7 Assessment Tool: YONATAN-7 Assessment 28003 ([id number])
[2023-06-07 09:59] VITALS: BP 126/70; PULSE 103; O2SAT 96
== END 2023-06-07 10:54 | disposition home or self-care (01) ==
PROVIDERS: PCP Family Medicine; Visit Provider Family Medicine
DX: E78.5 Hyperlipidemia, unspecified (principal); F41.9 Anxiety disorder, unspecified; F32.A Depression, unspecified; N52.9 Male erectile dysfunction, unspecified
CPT/HCPCS: 99214

== ENCOUNTER 2023-07-06 13:39 | Outpatient (AMB) | payer BC, SELFPAY ==
--- NOTE | 2023-07-06 13:39 | A.OFFVIS_ITS ---
Intake Intake Visit Reasons: 1m/testo(set) Intake Note: Patient presents today for a follow-up Meds- Tamsulosin Allergies to Antibiotic- No Known Allergies Blood Thinner- None Content Assistant Required: No Accompanied by: Self / Same As Patient Allergies No Known Allergies Allergy (Verified 07/06/23 14:20) environmental Allergy (Mild, Uncoded 07/06/23 14:20) hay fever, watery eyes. Medication List - Last Reconciled 07/06/23 by ROLANDO Redding- citalopram 20 mg PO DAILY 90 days ezetimibe (Zetia) 10 mg PO DAILY 30 days HPI HPI Comments History of Present Illness Details Sabino is a 53-year-old male patient of Dr. Raphael. He has a past medical history of hyperlipidemia, GERD, nicotine dependence, and tennis elbow syndrome. He is being follow-up today via telehealth for his low libido and erectile dysfunction. In discussion with the patient today he reports having followed up with his PCP at which time his statin was changed and during this process he noted that while not on any statin therapy he was not experiencing any issues with his erectile dysfunction and or low libido. He has since discontinued atorvastatin and is on Zetia 10 mg daily however continues to experience low libido and erectile dysfunction. Recent labs reviewed with the patient today. PSAs: 05/17 1.0, 02/14 1.0, 03/18 1.9, 06/19 1.8, Total testosterone: 09/14 768, 06/19 447, free testosterone 06/19 69.3. He had previously been on Flomax however feels he has since discontinued the medication and has had no lower urinary tract symptoms. He denies urinary urgency, urinary frequency, incontinence, nocturia, hematuria, dysuria, foul smelling urine, changes to urinary stream, flank pain, fever, and or chills. He is happy with his current voiding parameters. Discussed at length lifestyle modifications to assist with low libido and erectile dysfunction. When asked he denies any signs and symptoms of sleep apnea. He otherwise offers no other issues or concerns at this time. [facility] Medical History Hyperlipidemia GERD (gastroesophageal reflux disease) Smoker Tennis elbow syndrome Surgical History History of left knee surgery Family History Mother Substance use disorder Father No problems noted. 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 Current occupational exposures/hazards: No Cognitive needs: No Hearing needs: No Vision needs: No Review of Systems Const Reports no additional complaints Eyes Reports no additional complaints ENT Reports no additional complaints Card Reports as per HPI Resp Reports no additional complaints GI Reports as per HPI Reports as per HPI Musc Reports as per HPI Neuro Reports no additional complaints Psych Reports no additional complaints Endo Reports no additional complaints Trevor/Lymph Reports no additional complaints Aller/Immun Reports no additional complaints Physical Exam Const General: cooperative Resp Effort & Inspection: able to speak in complete sentences Psych Attitude: cooperative Thought process: Normal thought process present Thought content: Normal thought content present Insight: Fair insight present (Psych) Judgement: Fair judgement present (Psych) Assessment & Plan Assessment & Plan (1) Low libido: Code(s): R68.82 - Decreased libido (2) Erectile dysfunction: Code(s): N52.9 - Male erectile dysfunction, unspecified Plan Discussed at length potential causes for low libido and erectile dysfunction. Discussed at length lifestyle modifications to assist with these issues. Discussed at length treatment options for erectile dysfunction. Discussed, educated, and stressed the importance of quitting/limiting nicotine dependence for overall health and well-being. Patient would like to proceed with lifestyle modifications to assist with erectile dysfunction as discussed Follow-up in 3 months; or sooner with any issues, concerns, and or questions. Patient Instructions: The patient had an opportunity to ask questions regarding the treatment plan. All questions were answered. Physical exam, labs, and imaging were discussed and reviewed in detail. As well as risks, benefits, and discussion of treatment choices. No major barriers to understanding were identified. The patient expressed understanding and agreement with the above treatment plan. The patient was made aware they should contact our office by phone for worsening of their current condition, the appearance of new symptoms, or with any questions or concerns. Compliance is encouraged with any medications and follow up testing that is ordered. It is a privilege to be allowed the opportunity to participate in? your urological care.? Again, if you have any questions or concerns If you have any questions or concerns please do not hesitate to contact me. The office is [phone]. This note is constructed using voice recognition software. While every effort has been made to ensure accuracy social welfare clerk errors may have been included. Yours sincerely, ZEN Redding [facility] Telehealth Location of provider rendering services: practice address Location of patient: address on file Patient Identification confirmed using: Name, : Yes Telehealth method: voice only Patient verbally consented to treatment: Yes Patient verbally consented to billing insurance company: Yes Patient informed of any privacy concerns related to visit: Yes Minutes spent on Phone/Video with Pt.: 15 Coding Level of Care Code Tele Est Pt Level 3 (91079) Diagnoses Low libido R68.82 Erectile dysfunction N52.9
== END 2023-07-06 14:29 | disposition home or self-care (01) ==
LOC: HO.HUSH 13:39
PROVIDERS: PCP Family Medicine; Visit Provider Nurse Practitioner Family
DX: R68.82 Decreased libido (principal); N52.9 Male erectile dysfunction, unspecified
CPT/HCPCS: 99442

== ENCOUNTER → 2023-07-06 13:39 | Outpatient (BNVA) | payer BC, SELFPAY | PROVIDERS: PCP Family Medicine; Visit Provider Nurse Practitioner Family ==

== ENCOUNTER 2024-05-27 08:51 | Outpatient (REF) | payer BC, SELFPAY ==
[2024-05-27 10:05] LABS: Creatinine Urine 125.26 mg/dL; Microalbumin Urine < 5.0 mg/L
[2024-05-27 10:11] LABS: Alanine Aminotransferase 15 U/L (0-40); Albumin Level 4.2 g/dL (3.5-5.0); Alkaline Phosphatase 74 U/L (39-117); Anion Gap 11 (12-20); Aspartate Amino Transferase 21 U/L (5-37); Bilirubin Total 0.5 mg/dL (0.0-1.0); Blood Urea Nitrogen 15 mg/dL (9-16); Calcium 9.3 mg/dL (8.4-10.2); Carbon Dioxide 24 mmol/L (22-29); Chloride 108 mmol/L (96-108); Cholesterol 156 mg/dL (<200); Estimated Glomerular Filt Rate > 60; Glucose Fasting 92 mg/dL (60-99); HDL Cholesterol 37 mg/dL (>40); LDL Cholesterol Calculated 85 mg/dL (<100); Potassium 4.3 mmol/L (3.3-5.1); Sodium 139 mmol/L (135-145); Total Protein 7.4 g/dL (6.5-8.0); Triglycerides 174 mg/dL (<150)
[2024-05-27 10:14] LABS: Appearance Urine Clear; Color Urine Yellow; Glucose Urine UA Negative (Negative); Leukocyte Esterase Urine Trace (Negative); Nitrite Urine Negative (Negative); Specific Gravity - Urine 1.015 (1.005-1.025); UMIC TRIGGER UA YES; Urine Blood Negative (Negative); Urine Ketones Negative (Negative); Urine Protein Negative (Neg-Trace)
[2024-05-27 10:21] LABS: Bacteria Urine None Seen (None Seen); Hyaline Casts Urine 0-2 /LPF (0-2); RBC Urine 0-2 /HPF (0-2); Squamous Epithelial Cell Urine 0-2 /HPF (0-2); WBC Urine 0-5 /HPF (0-5)
== END 2024-05-27 08:52 | disposition home or self-care (01) ==
LOC: HO.LAB 08:51
PROVIDERS: PCP Family Medicine; Visit Provider Family Medicine
DX: Z00.00 Encounter for general adult medical examination without abnormal findings (principal); E78.5 Hyperlipidemia, unspecified; I10 Essential (primary) hypertension; R73.01 Impaired fasting glucose
CPT/HCPCS: 36415; 80053; 80061; 81001; 81003; 82043; 82570

== ENCOUNTER 2024-05-29 08:17 | Outpatient (AMB) | payer BC, SELFPAY ==
--- NOTE | 2024-05-29 08:26 | MHC.PC.OV ---
Vital Signs 05/29/24 08:30 Height 6 ft Weight 185 lb 4 oz BMI 25.1 BP 152/91 H Blood Pressure Location Rt brachial Position Sitting Respiration 13 Pulse 75 Pulse Source Pulse Oximeter Temp 96.8 F Temp Source Temporal Artery Scan Pulse Oximetry (%) 98 Oxygen Delivery Method Room Air Intake Visit Reasons: f/u hyperlipidemia Intake Note: follow up hyperlipidemia Skirt Panel Assembler Required: No Allergies No Known Allergies Allergy (Verified 05/29/24 08:28) environmental Allergy (Mild, Uncoded 07/06/23 14:20) hay fever, watery eyes. Medication List - Last Reconciled 05/29/24 by Hugh Raphael MD citalopram 20 mg PO DAILY 90 days ezetimibe (Zetia) 10 mg PO DAILY 30 days Tobacco use date assessed: 06/07/23 Dental Screening Dental Screen Date: 06/07/23 HPI f/u hyperlipidemia HPI Details Patient?presents?to?follow-up?hyperlipidemia. Had?been?fairly?well?controlled?on?atorvastatin?but?patient?felt?this?was?causing Worsening?of?ED?symptoms.??We?switched?atorvastatin?to?Zetia. Plan?was?to?recheck?his?lipids Labs drawn 05/27/24. Reviewed labs with pt. Triglycerides 174. TC 156. LDL 85. HDL low at 37. Notes knee pain that started a week ago. He notes squatting positions exacerbates the pain. HPI Comments History of Present Illness Details Documentation assistance for Hugh Raphael MD, was provided by Demario Hsieh,? Reuse Technician on 05/29/2024 at 9:00 AM EST. I, Dr. Raphael, have read, observed, and verified documentation. ?? PFSH Medical History Hyperlipidemia GERD (gastroesophageal reflux disease) Smoker Tennis elbow syndrome Surgical History History of left knee surgery Family History Mother Substance use disorder Father No problems noted. Sister Substance use disorder Social History Household Members: Spouse and Family Both parents involved: No Caregiver staying overnight: No Housing: House Are you a primary child care associate teacher to a significant other at home: No Do you presently have visiting nurse or other home services: No 75 years or older and lives alone: No Alcohol intake: current Alcohol intake frequency: holidays/special occasions only Alcohol type: beer Patient Tobacco Use Status: Current everyday Tobacco user Tobacco use type: Cigarette Cigarette Packs Per Day: 0.5 e-Cigarette/Vaping Use: Never Used Second Hand Smoke Exposure: No service: Yes Current occupational status: employed 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 1. Little interest or pleasure in doing things: not at all 2. Feeling down, depressed, or hopeless: not at all 3. Trouble falling or staying asleep, or sleeping too much: not at all 4. Feeling tired or having little energy: not at all 5. Poor appetite or overeating: not at all 6. Feeling bad about yourself - or that you are a failure or have let yourself or your family down: not at all 7. Trouble concentrating on things, such as reading the newspaper or watching television: not at all 8. Moving or speaking so slowly that other people could have noticed. Or the opposite - being so fidgety or restless that you have been moving around a lot more than usual: not at all 9. Thoughts that you would be better off or of hurting yourself in some way: not at all Total score: 0 12096 - PHQ-9 Billing: Yes Source: Developed by Drs. Allen Lao, Susy Copeland, Alton Robison and colleagues, with an educational suman from [employer]. Thrive Questionnaire Date Thrive assessed: 05/29/24 I am a: Patient What is your living situation today?: I have a steady place to live Within the past 12 months, did the food you bought not last and you didn't have the money to get more?: Never true Within the past 12 months, did you worry whether your food would run out before you got money to buy more?: Never true Do you have trouble paying for medicines?: No Do you have trouble getting transportation to medical appointments?: No Do you have trouble paying your heating and electricity bill?: No Do you have trouble taking care of your child, family member or friend?: No Do you have trouble with day-to-day activities such as bathing, preparing meals, shopping, managing finances, etc.?: No Are you currently unemployed and looking for a job?: No Are you interested in more education?: I choose not to answer this question Please select the resources that you would like help with: None Currently or been in a relationship where the following occur: No concerns reported THRIVE Score: 0 AUDIT C Alcohol Use Questionnaire (AUDIT-C) 1. How often do you have a drink containing alcohol?: Monthly or less 2. How many drinks containing alcohol do you have on a typical day when you are drinking?: 1 or 2 3. How often do you have six or more drinks on one occasion?: Never Total Score: 1 YONATAN-7 AMB Questionnaire YONATAN-7 Date YONATAN - 7 assessed: 05/29/24 Feeling nervous, anxious, or on edge: 0 = Not at all Not being able to stop or control worryin = Not at all Worrying too much about different things: 0 = Not at all Trouble relaxin = Not at all Being so restless that it is hard to sit still: 0 = Not at all Becoming easily annoyed or irritable: 0 = Not at all Feeling afraid as if something awful might happen: 0 = Not at all Total YONATAN-7 score (0-4 normal; 5-9 mild; 10-14 moderate; 15-21 severe): 0 Source: Developed by Drs. Allen Lao, Susy Copeland, Alton Robison and colleagues, with an educational suman from [employer]. YONATAN-7 Assessment Billing YONATAN-7 Assessment Tool: YONATAN-7 Assessment 48514 Review of Systems Const Denies chills, Denies fatigue, Denies fever(s), Denies headache(s) and Denies weakness ENT Denies dizziness and Denies headache(s) Card Denies dyspnea Resp Denies cough, Denies dyspnea, Denies wheezing and Denies other (shortness of breath) Musc Details: Knee pain Denies numbness and Denies tingling Neuro Denies dizziness, Denies headache(s), Denies numbness, Denies tingling and Denies weakness Psych Denies anxiety and Denies depression Endo Denies fatigue Aller/Immun Denies wheezing Physical exam (Primary Care) Vital Signs: Last Vital Signs Temp 96.8 F 05/29/24 08:30 Pulse 75 05/29/24 08:30 Resp 13 05/29/24 08:30 BP 152/91 H 05/29/24 08:30 Pulse Ox 98 05/29/24 08:30 Oxygen Delivery Method Room Air 05/29/24 08:30 BMI result Body Mass Index 25.1 Tobacco/Smoking Status: Tobacco use Status Tobacco use date assessed 06/07/23 05/29/24 08:27 Patient Tobacco Use Status Current everyday Tobacco 05/29/24 08:27 Tobacco use type Cigarette 05/29/24 08:27 e-Cigarette/Vaping Use Never Used 05/29/24 08:27 PHQ-9: PHQ-9 Score PHQ-9: Total score 0 05/29/24 08:27 Thrive Assessment: Date of Thrive Assessment Date Thrive assessed 05/29/24 05/29/24 08:27 Currently or been in a relationship where the following occur: No concerns reported Const General: well developed; No acute distress Nutritional Appearance: well nourished Orientation/consciousness: patient oriented x3 HENMT Head: Yes normocephalic and Yes atraumatic Eyes General: appearance normal, both eyes and all related structures Pupils: Equal, round and reactive pupils present EOM: EOMs intact bilaterally Resp Effort & Inspection: normal respiratory effort Auscultation: clear to auscultation bilaterally Cardio Rate: regular rate Rhythm: regular rhythm Heart sounds: S1 normal heart sound present, S2 normal heart sound present, no gallops, no murmurs and no rubs Neuro General: patient oriented x3 and gait normal Cranial nerves: Yes Equal, round and reactive pupils present Psych Affect: normal affect Coding Level of Care Code Est Pt Level 4 (25604) Diagnoses Hyperlipidemia E78.5 Erectile dysfunction N52.9 Knee pain M25.569 Additional Codes YONATAN-7 Assessment Billing - YONATAN-7 Assessment Tool: YONATAN-7 Assessment 29779 ([id number]) PHQ-9 - 00642 - PHQ-9 Billing: Yes ([id number]) Assessment & Plan Assessment & Plan (1) Hyperlipidemia: Code(s): E78.5 - Hyperlipidemia, unspecified Category: Medical Plan: TC?and?LDL?remain?controlled?on?Zetia?after?switching?from?atorvastatin?(patient?felt?that?atorvastatin?was?worsening?ED) HDL?is?a?little?too?low?and?triglycerides?a?little?too?high Encouraged?further?exercise Continue?to?watch?saturated?fats?and?cholesterol?in?diet (2) Erectile dysfunction: Code(s): N52.9 - Male erectile dysfunction, unspecified Category: Medical Plan: Patient?would?like?to?try?sildenafil Will?send?script (3) Knee pain: Code(s): M25.569 - Pain in unspecified knee Category: Medical Plan: Left?knee?pain?behind?patella?and?positive?patellar?grind He?will?try?ibuprofen,?ice?and?strengthening?quadriceps?muscles. If?not?improving?should?imaging?consider?referral?to?Ortho Orders: Orders Complete Blood Count Auto Diff Today Z00.00 - Encounter for general adult medical examination without abnormal findings Prostate Specific Antigen Scr Today Z12.5 - Encounter for screening for malignant neoplasm of prostate Comprehensive [place]. Panel Fast Today Z00.00 - Encounter for general adult medical examination without abnormal findings Microalbumin, Random (w Creat) Today I10 - Essential (primary) hypertension Lipid Panel Today Z00.00 - Encounter for general adult medical examination without abnormal findings TSH reflex Free T4 Today Z00.00 - Encounter for general adult medical examination without abnormal findings UA and rflx microscopic Today Z00.00 - Encounter for general adult medical examination without abnormal findings Medications: New sildenafil administer 30 minutes to 4 hours before activity 50 mg PO DAILY 30 days PRN 6 tabs 0RF sexual activity Changed From ezetimibe (Zetia) 10 mg PO DAILY 30 days 30 tabs 2RF To ezetimibe (Zetia) 10 mg PO DAILY 90 days 90 tabs 2RF
[2024-05-29 08:30] VITALS: BP 152/91; PULSE 75; RESP 13; TEMP 36; O2SAT 98; BMI 25.1
== END 2024-05-29 09:13 | disposition home or self-care (01) ==
PROVIDERS: PCP Family Medicine; Visit Provider Family Medicine
DX: E78.5 Hyperlipidemia, unspecified (principal); N52.9 Male erectile dysfunction, unspecified; M25.569 Pain in unspecified knee

== ENCOUNTER → 2024-05-29 08:17 | Outpatient (BNVA) | payer BC, SELFPAY | PROVIDERS: PCP Family Medicine; Visit Provider Family Medicine | DX: E78.5 Hyperlipidemia, unspecified (principal); N52.9 Male erectile dysfunction, unspecified; M25.562 Pain in left knee; Z79.899 Other long term (current) drug therapy | CPT/HCPCS: 96127 ==

== ENCOUNTER 2024-12-23 07:41 | Outpatient (REF) | payer BC, SELFPAY ==
[2024-12-23 07:53] LABS: MANUAL DIFF FLAG NO
[2024-12-23 08:25] LABS: Hematocrit 45.4 % (42.0-52.0); Hemoglobin 16.0 g/dl (14.0-18.0); Imm Gran Abs Auto 0.04 X10*3/uL (0.00-0.03); Imm Gran Pct Auto 0.4 % (0.0-0.4); Lymphocytes Absolute Auto 2.6 X10*3/uL (1.2-4.9); Mean Corpuscular HGB Conc 35.2 g/dl (31.0-36.0); Mean Corpuscular Hemoglobin 31.3 pg (27.0-33.0); Mean Corpuscular Volume 88.7 fL (80.0-98.0); NRBC Abs Auto 0.000 X10*3/uL (0.0-0.012); NRBC Pct Auto 0.0 /100WBC (0.0-0.2); Platelet Count 293 X10*3/uL (160-400); Red Blood Count 5.12 X10*6/uL (4.60-5.80); White Blood Count 9.7 X10*3/uL (4.8-10.8)
[2024-12-23 08:58] LABS: Appearance Urine Clear; Glucose Urine UA Negative (Negative); PH 6.0 (5.0-9.0); Specific Gravity - Urine 1.025 (1.005-1.025)
[2024-12-23 09:02] LABS: Alanine Aminotransferase 24 U/L (0-40); Albumin Level 4.5 g/dL (3.5-5.0); Alkaline Phosphatase 108 U/L (39-117); Anion Gap 15 (12-20); Aspartate Amino Transferase 28 U/L (5-37); Blood Urea Nitrogen 13 mg/dL (9-16); Calcium 9.2 mg/dL (8.4-10.2); Carbon Dioxide 24 mmol/L (22-29); Chloride 105 mmol/L (96-108); Cholesterol 241 mg/dL (<200); Estimated Glomerular Filt Rate > 60; HDL Cholesterol 42 mg/dL (>40); Potassium 4.3 mmol/L (3.3-5.1); Sodium 140 mmol/L (135-145); Total Protein 7.5 g/dL (6.5-8.0); Triglycerides 270 mg/dL (<150)
[2024-12-23 09:35] LABS: Microalbum/Creatinine Ratio Ur 2.7 ug/mg cr (<30)
== END 2024-12-23 07:42 | disposition home or self-care (01) ==
LOC: HO.LAB 07:41
PROVIDERS: PCP Family Medicine; Visit Provider Family Medicine
DX: Z00.00 Encounter for general adult medical examination without abnormal findings (principal); Z12.5 Encounter for screening for malignant neoplasm of prostate; I10 Essential (primary) hypertension
CPT/HCPCS: 36415; 80053; 80061; 81003; 82043; 82570; 84153; 84443; 85025

== ENCOUNTER 2024-12-29 11:45 | Outpatient (AMB) | payer BC, SELFPAY ==
--- NOTE | 2024-12-29 11:49 | MHC.PC.OV ---
Vital Signs 12/29/24 11:53 Height 6 ft Weight 181 lb 4 oz BMI 24.6 BP 122/72 Blood Pressure Location Lt brachial Position Sitting Respiration 12 Pulse 57 Pulse Source Pulse Oximeter Temp 97.2 F Temp Source Oral Pulse Oximetry (%) 98 Oxygen Delivery Method Room Air Intake Visit Reasons: CPE / Dr. Raphael's pt. Intake Note: CPE Tow Operator Required: No Allergies No Known Allergies Allergy (Verified 12/29/24 12:06) environmental Allergy (Mild, Uncoded 12/29/24 11:50) hay fever, watery eyes. Medication List - Last Reconciled 12/29/24 by Sarika Vee, MARBLE CARVER- citalopram 20 mg PO DAILY 90 days ezetimibe (Zetia) 10 mg PO DAILY 90 days sildenafil 50 mg PO DAILY PRN 30 days Tobacco use date assessed: 12/29/24 Dental Screening Dental Screen Date: 12/29/24 Did you have a dental visit in the last 12 months?: Yes Did you have a dental problem in the last 6 months where you did not have access to dental care?: No Was dental information given to patient?: Patient has dentist HPI HPI Comments History of Present Illness Details 54 y/o M with HLD, ED, GERD, MDD, YONATAN, chronic low back pain, current smoker Health Maintenance Tdap 2020 Colon 2023, repeat 3-5 years PSA 1.60 Labs 12/23/24 TG 270, TC 241, LDL 145, HDL 42 otherwise WNL History of Present Illness - The patient is a 54 year old male presenting with complete physical examination. - History of hyperlipidemia; had stopped Zetia due to joint pain but resumed it. - Anxiety and depression managed with Celexa. - Erectile dysfunction managed with Sildenafil. - Chronic lower back pain post-lifting incident; varies with activity. Denies red flag sx. - Suspected onychomycosis with toenail involution; patient avoids foot examinations due to phobia. - Urinary hesitancy, weak stream. - Performs physical labor at work; attempts a balanced diet. 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 - Attempts to maintain a healthy diet, experiencing challenges due to occupational circumstances. - Fear of feet examinations due to past discomfort. Review of Systems - Cardiovascular: Reports joint pain with medication use. - Musculoskeletal: Reports chronic low back pain. - Neurological: Denies headache or dizziness. - Psychological: Reports anxiety and depression. - Genitourinary: Reports diminished urinary stream; hesitancy. - Integumentary: Reports toenail discoloration and involution. Physical Exam General: Well developed, well nourished, in no acute distress. Appears stated age. Head: Normocephalic, atraumatic. Eyes: Pupils are equal, round and reactive to light and accommodation. Conjunctivae are clear. Vision grossly normal. Ears: TMs clear AU, EACS WNL Nose: Patent, without discharge. Neck: Supple, no adenopathy or thyromegaly. Breast: Edu on SBE Lungs: Clear to auscultation bilaterally. No rales, rhonchi or wheeze noted. Good air flow in all ingram. Heart: Regular rate and rhythm. No murmurs, click, rubs or gallops are noted. Abdomen: Bowel sounds present in all quadrants. The abdomen is soft, nontender, with no masses or organomegaly noted. No hernias are noted. : Deferred. Reviewed YOHANNES & recommendations Pulses: Peripheral pulses are equal and palpable bilaterally. Extremities: No clubbing, cyanosis nor edema is noted. Patient reports phobia of feet being touched and has toenail discoloration and possible ingrown toenail. Neurologic: Gait and station normal. Cranial Nerves 2-12 intact. Motor strength grossly symmetrical and intact. No sensory loss. Balance normal. Skin: No rashes, ulcers, or lesions noted. Turgor is good. Skin color is good. Hair without abnormalities, Toe nails are thick and fungal; involution R great toe w/o infection. Psych: Normal eye contact, affect and mood appropriate, and normal interactions. Patient is alert and appropriate to context. Results - Tests and Diagnostics: as above Discussion Notes During the visit, I discussed with the patient the management of hyperlipidemia, including restarting Zetia. . I emphasized maintaining a healthy diet and controlling cholesterol levels by avoiding sugary and processed foods. I offered information on the potential benefits of steady cardio and recommended ongoing self-management for anxiety and depression with current medications. We discussed the possibility of treating urinary sx with Flomax. We also reviewed the practicality of scheduling chiropractic evaluations for his back pain and grounds worker interventions for the fungal toenail or ingrown condition. I reiterated the importance of follow-ups, especially given new medications. Patient was given time to ask questions. All questions were answered to their satisfaction. Assessment and Plan 1. Hyperlipidemia - Restart Zetia. - Dietary modifications advised. 2. Anxiety and Depression - Continue Celexa. 3. Erectile Dysfunction - Continue Sildenafil. 4. Lower Back Pain - chiropractic referral. 5. Onychomycosis - Podiatry referral. 6. Impacted Toenail - Podiatry evaluation needed. 8. Urinary Hesitancy - Start Flomax. 9. Smoker - cessation education Patient Instructions - Restart your cholesterol medication, Zetia, and monitor for joint pain. - Continue taking your depression medication, Celexa. - Use Sildenafil when necessary for erectile dysfunction. - Try Flomax to help with better urine flow. - For back pain, consider visiting a chiropractor if schedules allow. - Visit a grounds worker for your toenail issues when able. - Follow a healthy diet low in sugars and trans fats to manage cholesterol levels. - RTO 3 mo w/ labs to fu with PCP Lipids/flomax start Health Maintenance - Discussion about healthy food choices and label reading during grocery shopping. - Conversations regarding outside grocery aisles being better for heart health. - Advice on importance of avoiding foods with added sugars and trans fats, and ensuring healthy cholesterol sources. - Provided insights into preventing lifestyle-induced obesity Consent Patient was informed and verbally consented to the use of an ambient scribe for clinic note documentation during this visit. An additional 30 minutes was spent addressing the problem(s) noted at todays visit. This includes time spent before the visit reviewing the chart, time spent during the visit, and time spent after the visit on documentation reviewing laboratory results, diagnostic imaging, medications, performing a medically necessary evaluation, counseling on diagnoses, care coordination, ordering appropriate tests, ordering appropriate medications, review of tests performed by other providers, reporting test results with the patient, communication with other healthcare providers. [facility] Medical History (Updated 12/29/24 @ 15:02 [facility] GERD (gastroesophageal reflux disease) Hyperlipidemia Smoker Tennis elbow syndrome Surgical History (Reviewed 09/21/23 @ 08:26 by Lisa Lawrence [facility]) History of left knee surgery Family History Mother Substance use disorder Father No problems noted. Sister Substance use disorder Social History Household Members: Spouse and Family Both parents involved: No Caregiver staying overnight: No Housing: House Are you a primary manager medicare marketing to a significant other at home: No Do you presently have visiting nurse or other home services: No 75 years or older and lives alone: No Alcohol intake: current Alcohol intake frequency: holidays/special occasions only Alcohol type: beer Patient Tobacco Use Status: Current everyday Tobacco user Tobacco use type: Cigarette Cigarette Packs Per Day: 0.5 e-Cigarette/Vaping Use: Never Used Second Hand Smoke Exposure: No service: Yes Current occupational status: employed 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 1. Little interest or pleasure in doing things: not at all 2. Feeling down, depressed, or hopeless: not at all 3. Trouble falling or staying asleep, or sleeping too much: not at all 4. Feeling tired or having little energy: not at all 5. Poor appetite or overeating: not at all 6. Feeling bad about yourself - or that you are a failure or have let yourself or your family down: not at all 7. Trouble concentrating on things, such as reading the newspaper or watching television: not at all 8. Moving or speaking so slowly that other people could have noticed. Or the opposite - being so fidgety or restless that you have been moving around a lot more than usual: not at all 9. Thoughts that you would be better off or of hurting yourself in some way: not at all Total score: 0 Depression Screening Interpretation: Negative Depression Screening Done: Yes 68873 - PHQ-9 Billing: Yes Source: Developed by Drs. Allen Lao, Susy Copeland, Alton Robison and colleagues, with an educational suman from [facility]. Thrive Questionnaire Date Thrive assessed: 12/29/24 I am a: Patient What is your living situation today?: I have a steady place to live Within the past 12 months, did the food you bought not last and you didn't have the money to get more?: Never true Within the past 12 months, did you worry whether your food would run out before you got money to buy more?: Never true Do you have trouble paying for medicines?: No Do you have trouble getting transportation to medical appointments?: No Do you have trouble paying your heating and electricity bill?: No Do you have trouble taking care of your child, family member or friend?: No Do you have trouble with day-to-day activities such as bathing, preparing meals, shopping, managing finances, etc.?: No Are you currently unemployed and looking for a job?: No Are you interested in more education?: I choose not to answer this question Please select the resources that you would like help with: None Currently or been in a relationship where the following occur: No concerns reported THRIVE Score: 0 AUDIT C Alcohol Use Questionnaire (AUDIT-C) 1. How often do you have a drink containing alcohol?: Never 3. How often do you have six or more drinks on one occasion?: Never Total Score: 0 Score Reviewed/Action Taken: Yes YONATAN-7 AMB Questionnaire YONATAN-7 Date YONATAN - 7 assessed: 12/29/24 Feeling nervous, anxious, or on edge: 0 = Not at all Not being able to stop or control worryin = Not at all Worrying too much about different things: 0 = Not at all Trouble relaxin = Not at all Being so restless that it is hard to sit still: 0 = Not at all Becoming easily annoyed or irritable: 0 = Not at all Feeling afraid as if something awful might happen: 0 = Not at all Total YONATAN-7 score (0-4 normal; 5-9 mild; 10-14 moderate; 15-21 severe): 0 Source: Developed by Drs. Allen Lao, Susy Copeland, Alton Robison and colleagues, with an educational suman from [facility]. YONATAN-7 Assessment Billing YONATAN-7 Assessment Tool: YONATAN-7 Assessment 85462 Physical exam (Primary Care) Vital Signs: Last Vital Signs Temp 97.2 F 12/29/24 11:53 Pulse 57 12/29/24 11:53 Resp 12 12/29/24 11:53 BP 122/72 12/29/24 11:53 Pulse Ox 98 12/29/24 11:53 Oxygen Delivery Method Room Air 12/29/24 11:53 BMI result Body Mass Index 24.6 Tobacco/Smoking Status: Tobacco use Status Tobacco use date assessed 12/29/24 12/29/24 11:50 Patient Tobacco Use Status Current everyday Tobacco 12/29/24 11:50 Tobacco use type Cigarette 12/29/24 11:50 e-Cigarette/Vaping Use Never Used 12/29/24 11:50 Are you ready to quit: No Tobacco cessation counseling provided: Yes Items discussed: Nicotine replacement, QuitWorks and Other Relapse Prevention: discussed the importance of a supportive environment, discussed extending NRT, discussed negative mood or depression after quitting, weight gain after smoking is common and discussed dietary, exercise and/or lifestyle changes Number of minutes spent counselin CPT code: 13050 - 4-10 Minutes PHQ-9: PHQ-9 Score PHQ-9: Total score 0 12/29/24 12:06 Depression Screening Interpretation: Negative Thrive Assessment: Date of Thrive Assessment Date Thrive assessed 12/29/24 12/29/24 11:50 Currently or been in a relationship where the following occur: No concerns reported Coding Level of Care Code Est Pt Level 4 (48610) Est Pt Prev Care 40-64y(08735) Diagnoses Adult general medical exam Z00.00 Anxiety and depression F41.9; F32.A Mixed hyperlipidemia E78.2 Hyperlipidemia type: mixed hyperlipidemia Elevated fasting glucose R73.01 Erectile dysfunction, unspecified erectile dysfunction type N52.9 Erectile dysfunction type: unspecified Chronic bilateral low back pain without sciatica M54.50; G89.29 Back pain laterality: bilateral Sciatica presence: without sciatica Onychomycosis B35.1 Ingrown toenail of right foot L60.0 Lower urinary tract symptoms (LUTS) R39.9 Smoker F17.200 Additional Codes YONATAN-7 Assessment Billing - YONATAN-7 Assessment Tool: YONATAN-7 Assessment 05041 ([id number]) PHQ-9 - 65300 - PHQ-9 Billing: Yes ([id number]) Vital Signs *Quality* - CPT code: 69745 - 4-10 Minutes ([id number]) Assessment & Plan Assessment & Plan (1) Adult general medical exam: Onset Date: ~12/29/24 Code(s): Z00.00 - Encounter for general adult medical examination without abnormal findings Category: Medical (2) Anxiety and depression: Code(s): F41.9 - Anxiety disorder, unspecified; F32.A - Depression, unspecified Category: Medical (3) Hyperlipidemia: Code(s): E78.5 - Hyperlipidemia, unspecified Category: Medical Qualifiers: Hyperlipidemia type: mixed hyperlipidemia Qualified Code(s): E78.2 - Mixed hyperlipidemia (4) Elevated fasting glucose: Code(s): R73.01 - Impaired fasting glucose Category: Medical (5) Erectile dysfunction: Code(s): N52.9 - Male erectile dysfunction, unspecified Category: Medical Qualifiers: Erectile dysfunction type: unspecified Qualified Code(s): N52.9 - Male erectile dysfunction, unspecified (6) Chronic low back pain: Code(s): M54.50 - Low back pain, unspecified; G89.29 - Other chronic pain Category: Medical Qualifiers: Back pain laterality: bilateral Sciatica presence: without sciatica Qualified Code(s): M54.50 - Low back pain, unspecified; G89.29 - Other chronic pain (7) Onychomycosis: Code(s): B35.1 - Tinea unguium Category: Medical (8) Ingrown toenail of right foot: Code(s): L60.0 - Ingrowing nail Category: Medical (9) Lower urinary tract symptoms (LUTS): Code(s): R39.9 - Unspecified symptoms and signs involving the genitourinary system Category: Medical (10) Smoker: Comment: Smoking Cessation How to Quit There are a lot of ways to quit smoking and many resources to help you. Family members, friends, and co-workers may be supportive or encouraging, but to be successful the desire and commitment to quit must be your own. Most people who have been able to successfully quit smoking made at least one unsuccessful attempt in the past. Try not to view past attempts to quit as failures, but rather as learning experiences. Stopping smoking or using smokeless tobacco is difficult, but anyone can do it. Know the symptoms to expect when you stop. Common symptoms include: ? An intense craving for nicotine ? Anxiety, tension, restlessness, frustration, or impatience ? Difficulty concentrating ? Drowsiness or trouble sleeping, as well as bad dreams and nightmares ? Drowsiness and trouble sleeping ? Headaches ? Increased appetite and weight gain ? Irritability or depression How severe your symptoms are depends on how long you smoked and how many cigarettes you smoked each day. Feel ready to quit? ? First and foremost, set a quit date and quit completely on that day. Before your quit date, you may begin reducing your cigarette use. But remember, there is no safe level of cigarette smoking. ? List the reasons why you want to quit. Include both short- and long-term benefits. ? Identify the times you are most likely to smoke. For example, do you tend to smoke when feeling stressed or down? When out at night with friends? While drinking coffee or alcohol? When bored? While driving? Right after a meal or sex? During a work break? While watching TV or playing cards? When you are with other smokers? ? Let all of your friends, family, and co-workers know of your plan to stop smoking and your quit date. Just being aware that they know what you're going through can be helpful, especially when you are grumpy. ? Get rid of all your cigarettes just before the quit date, and clean out anything that smells like smoke, such as clothes and furniture. Make a plan about what you will do instead of smoking at those times when you are most likely to smoke. ? Be as specific as possible. For example, drink tea instead of coffee -- tea may not trigger the desire for a cigarette. Or, take a walk when you feel stressed. ? Remove ashtrays and cigarettes from the car. Place pretzels or hard candies there instead. Pretend-smoke with a straw. ? Find activities that focus your hands and mind but are not taxing or fattening. Computer games, solitaire, knitting, sewing, and crossword puzzles may help. ? If you normally smoke after eating, find other ways to end a meal. Play a tape or CD, eat a piece of fruit, get up and make a phone call, or take a walk (a good distraction that also valdez calories). Make other changes in your lifestyle. ? Change your daily schedule and habits. Eat at different times or eat several small meals instead of three large ones. Sit in a different chair or even a different room. ? Satisfy your oral habits by eating celery or other low-calorie snack, chewing sugarless gum, or sucking on a cinnamon stick. ? Go to public places and restaurants where smoking is prohibited or restricted. ? Eat regular meals and don't eat too much candy or sweet things. ? Get more exercise. Take walks or ride a bike. Exercise helps relieve the urge to smoke. Set short-term quitting goals and reward yourself when you meet them. ? Every day, put the money you normally spend on cigarettes in a jar. Then buy something pleasurable after a period of time. ? Try not to think about all the days ahead you will need to avoid smoking. Take it one day at a time. ? Even one puff or one cigarette will make your desire for more cigarettes even stronger. However, it is normal to make mistakes. So even if you have one cigarette, you don't need to take the next one. Other tips to help you quit smoking and stick to it: ? Enroll in a smoking cessation program (hospitals, health departments, community centers, and work sites often offer programs). Learn about self-hypnosis or other techniques. ? Ask your health care provider about prescription medications that are safe and appropriate for you. ? Find out about nicotine patches, gum, and sprays. The [place] [employer]'s web site -- www.cancer.org -- is an excellent resource for smokers who are trying to quit, and the [employer] [place] [employer] can help some smokers kick the habit. Above all, don't get discouraged if you aren't able to quit smoking the first time. Nicotine addiction is a hard habit to break. Try something different next time. Develop new strategies, and try again. Many people take several attempts to finally kick the habit. Code(s): F17.200 - Nicotine dependence, unspecified, uncomplicated Category: Social Hx Plan . Orders: Orders Comprehensive [place]. Panel Fast 6 Months E78.5 - Hyperlipidemia, unspecified, R73.01 - Impaired fasting glucose Lipid Panel 6 Months E78.5 - Hyperlipidemia, unspecified, R73.01 - Impaired fasting glucose Referrals Chiropractic Referral G89.29 - Other chronic pain, M54.50 - Low back pain, unspecified Podiatry Referral B35.1 - Tinea unguium, L60.0 - Ingrowing nail Medications: New tamsulosin (Flomax) 0.4 mg PO BEDTIME 90 caps 1RF Patient Instructions: Health screenings for men You should visit your health care provider regularly, even if you feel healthy. The purpose of these visits is to: Screen for medical issues Assess your risk for future medical problems Encourage a healthy lifestyle Update vaccinations and other preventive care services Help you get to know your provider in case of an illness Information Even if you feel fine, you should still see your provider for regular checkups. These visits can help you avoid problems in the future. For example, the only way to find out if you have high blood pressure is to have it checked regularly. High blood sugar and high cholesterol level also may not have any symptoms in the early stages. Simple blood tests can check for these conditions. There are specific times when you should see your provider or receive specific health screenings. The [place] Preventive Services Task Force publishes a list of recommended screenings. Below are screening guidelines for men ages 40 to 64. BLOOD PRESSURE SCREENING Have your blood pressure checked at least once every year. Watch for blood pressure screenings in your area. Ask your provider if you can stop in to have your blood pressure checked. Ask your provider if you need your blood pressure checked more often if: You have diabetes, heart disease, kidney problems, or are overweight or have certain other health conditions You have a first-degree relative with high blood pressure You are Black Your blood pressure top number is from 120 to 129 mm Hg, or the bottom number is from 70 to 79 mm Hg If the top number is 130 mm Hg or greater or the bottom number is 80 mm Hg or greater, this is considered stage 1 hypertension. Schedule an appointment with your provider to learn how you can lower your blood pressure. Effects of age on blood pressure CHOLESTEROL SCREENING Cholesterol screening should begin at age 35 for men with no known risk factors for coronary heart disease. Repeat cholesterol screening should take place: Every 5 years for men with normal cholesterol levels More often if changes occur in lifestyle (including weight gain and diet) More often if you have diabetes, heart disease, kidney problems, or certain other conditions COLORECTAL CANCER SCREENING If you are under age 45, talk to your provider about getting screened. You may need to be screened if you have a strong family history of colon cancer or polyps. Screening may also be considered if you have risk factors such as a history of inflammatory bowel disease or polyps. If you are age 45 to 75, you should be screened for colorectal cancer. There are several screening tests available: A stool-based fecal occult blood (gFOBT) or fecal immunochemical test (FIT) every year A stool sDNA test every 1 to 3 years Flexible sigmoidoscopy every 5 years or every 10 years with stool testing FIT done every year CT colonography (virtual colonoscopy) every 5 years Colonoscopy every 10 years You may need a colonoscopy more often if you have risk factors for colorectal cancer, such as: Ulcerative colitis A personal or family history of colorectal cancer A history of growths in your colon called adenomatous polyps DENTAL EXAM Go to the dentist once or twice every year for an exam and cleaning. Your dentist will evaluate if you have a need for more frequent visits. DIABETES SCREENING All adults who do not have risk factors for diabetes should be screened starting at age 35 and repeated every 3 years. If you have other risk factors for diabetes, such as a first degree relative with diabetes, overweight or obesity, high blood pressure, prediabetes, or a history of heart disease, you may be tested more often. If you are overweight and have other risk factors, such as high blood pressure and are planning to become , screening is recommended. EYE EXAM Have an eye exam every 2 to 4 years ages 40 to 54 and every 1 to 3 years ages 55 to 64. Your provider may recommend more frequent eye exams if you have vision problems or glaucoma risk. Have an eye exam that includes an examination of your retina (back of your eye) at least every year if you have diabetes. IMMUNIZATIONS Commonly needed vaccines include: Flu shot: get one every year COVID-19 vaccine: ask your provider what is best for you Tetanus-diphtheria and acellular pertussis (Tdap) vaccine: have as one of your tetanus-diphtheria vaccines if you did not receive it as an adolescent Tetanus-diphtheria: have a booster (or Tdap) every 10 years Varicella vaccine: receive 2 doses if you never had chickenpox or the varicella vaccine and were born in 1979 or after Hepatitis B vaccine: receive 2, 3, or 4 doses, depending on your exact circumstances, if you did not receive these as a child or adolescent, until age 59 Shingles (herpes zoster) vaccine: at or after age 50 Ask your provider if you should receive other immunizations, especially if you have certain medical conditions, such as diabetes or are at increased risk for some diseases such as pneumonia. INFECTIOUS DISEASE SCREENING Screening for hepatitis C: all adults ages 18 to 79 should get a one-time test for hepatitis C. Screening for human immunodeficiency virus (HIV): all people ages 15 to 65 should get a one-time test for HIV. Depending on your lifestyle and medical history, you may need to be screened for infections such as syphilis, chlamydia, and other infections. LUNG CANCER SCREENING You should have an annual screening for lung cancer with low-dose computed tomography (LDCT) if: You are age 50 to 80 years AND You have a 20 pack-year smoking history AND You currently smoke or have quit within the past 15 years OSTEOPOROSIS SCREENING If you are age 50 to 64 and have risk factors for osteoporosis, you should discuss screening with your provider. Risk factors can include long-term steroid use, low body weight, smoking, heavy alcohol use, having a fracture after age 50, or a family history of hip fracture or osteoporosis. Osteoporosis PHYSICAL EXAM All adults should visit their provider from time to time, even if they are healthy. The purpose of these visits is to: Screen for diseases Assess risk of future medical problems Encourage a healthy lifestyle Update vaccinations and other preventive care services Maintain a relationship with a provider in case of an illness Your height, weight, and body mass index (BMI) should be checked at every exam. During your exam, your provider may ask you about: Depression and anxiety Diet and exercise Alcohol and tobacco use Safety, such as use of seat belts and smoke detectors Your medicines and risk for interactions PROSTATE CANCER SCREENING If you're 55 through 69 years old, before having the test, talk to your provider about the pros and cons of having a PSA test. Ask about: Whether screening decreases your chance of dying from prostate cancer. Whether there is any harm from prostate cancer screening, such as side effects from testing or overtreatment of cancer when discovered. Whether you have a higher risk of prostate cancer than others. If you are age 55 or younger, screening is not generally recommended. You should talk with your provider about if you have a higher risk for prostate cancer. Risk factors include: Having a family history of prostate cancer (especially a brother or father) Being If you choose to be tested, the PSA blood test is repeated over time (yearly or less often), though the best frequency is not known. Prostate examinations are no longer routinely done on men with no symptoms. Prostate cancer SKIN EXAM Your provider may check your skin for signs of skin cancer, especially if you're at high risk. People at high risk include those who have had skin cancer before, have close relatives with skin cancer, or have a weakened immune system. TESTICULAR EXAM The [place] Preventive Services Task Force (USPSTF) now recommends against performing testicular self-exams. Doing testicular self-exams has been shown to have little to no benefit.
[2024-12-29 11:53] VITALS: BP 122/72; PULSE 57; RESP 12; TEMP 36.2; O2SAT 98; BMI 24.6
== END 2024-12-29 12:49 | disposition home or self-care (01) ==
LOC: HO.HMCFM 11:46
PROVIDERS: PCP Family Medicine; Visit Provider Nurse Practitioner Family
DX: Z00.00 Encounter for general adult medical examination without abnormal findings (principal); F41.9 Anxiety disorder, unspecified; F32.A Depression, unspecified; F17.210 Nicotine dependence, cigarettes, uncomplicated; E78.2 Mixed hyperlipidemia; R73.01 Impaired fasting glucose; N52.9 Male erectile dysfunction, unspecified; M54.50 Low back pain, unspecified; G89.29 Other chronic pain; B35.1 Tinea unguium; L60.0 Ingrowing nail; R39.9 Unspecified symptoms and signs involving the genitourinary system

== ENCOUNTER → 2024-12-29 11:45 | Outpatient (BNVA) | payer BC, SELFPAY | PROVIDERS: PCP Family Medicine; Visit Provider Nurse Practitioner Family | DX: Z00.00 Encounter for general adult medical examination without abnormal findings (principal); N52.9 Male erectile dysfunction, unspecified; M54.50 Low back pain, unspecified; R39.11 Hesitancy of micturition; R39.12 Poor urinary stream; B35.1 Tinea unguium; E78.2 Mixed hyperlipidemia; R73.01 Impaired fasting glucose; G89.29 Other chronic pain; L60.0 Ingrowing nail; R39.9 Unspecified symptoms and signs involving the genitourinary system; F32.A Depression, unspecified; F41.9 Anxiety disorder, unspecified; F17.210 Nicotine dependence, cigarettes, uncomplicated; Z79.899 Other long term (current) drug therapy | CPT/HCPCS: 96127 ==

== ENCOUNTER 2025-01-29 07:49 | Outpatient (AMB) | payer BC, SELFPAY ==
[2025-01-29 08:11] VITALS: BMI 24.5
--- NOTE | 2025-01-29 08:11 | A.OFFVIS_ITS ---
Vital Signs 01/29/25 08:11 Height 6 ft Weight 181 lb BMI 24.5 Intake Visit Reasons: tinea unguium, ingrowing nail Intake Note: harry is a 54 year old male who presents today as a new patient for an evaluation of his bilateral tinea unguium and ingrown on his right hallux. Pt reports this issue of the ingrown has been going on for about 20 years and his tinea unguium has been going on for about 1 year. He states he has not tried any previous treatment and he is not in any pain at this time. Allergies No Known Allergies Allergy (Verified 01/29/25 08:18) environmental Allergy (Mild, Uncoded 12/29/24 11:50) hay fever, watery eyes. HPI HPI tinea unguium, ingrowing nail: Details: The patient is a 54-year-old male no pertinent past medical history presents for evaluation of painful ingrowing nails. The patient reports having nail abnormalities for approximately 20 years, with the fungal infection starting about a year ago. He has attempted czsq-cco-pigngjf treatments, including a nail hungarian-like solution for three weeks, which did not yield significant improvement. 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 He also reports experiencing athlete's foot. 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 - Exercise: The patient walks daily, approximately twice a day. [facility] Medical History (Updated 01/29/25 @ 09:03 by Edmundo Lewis DPM) Hyperlipidemia GERD (gastroesophageal reflux disease) Smoker Tennis elbow syndrome Surgical History History of left knee surgery Family History Mother Substance use disorder Father No problems noted. 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 Interdigital spaces: Clear, no maceration or fungal infection. Nails: thickened elongated dystrophic toenails x10 with subungual debris. Neuro: Protective sensation grossly intact to bilateral lower extremities Msk: Deformities: No evidence of hammertoes, bunions or other structural abnormalities. Muscle strength: 5/5 in all muscle groups. Gait: Normal, no antalgic or steppage gait observed. Footwear Assessment: Shoes inspected; appropriate fit, no excessive wear, or foreign objects noted. Office Procedures AMB Debridement/Avulsion Podia Details: Procedure: Nail debridement Location: Bilateral feet times 10 Anesthesia: N/A Description: The affected toenails were cleansed with an antiseptic solution. Using sterile nail nippers and a rotary jazlyn, dystrophic and mycotic nail material was carefully debrided and reduced in thickness. Care was taken to avoid trauma to the surrounding skin and nail bed. All debris was removed as tolerated. The area was inspected for signs of infection or ulceration. Patient tolerated the procedure well without complications. Tolerance: Patient tolerated procedure well, no immediate complications. Class B findings as per physical exam findings above. 34714-Ceygqctygmz of Nail 6+ Procedure code (CPT) selection complete Office Meds lidocaine HCl 2 % mucosal jelly in applicator Performing Provider: Edmundo Lewis DPM Performing Location: [facility] Documented (not given) by: Edmundo Lewis DPM on 01/29/25 08:58 Dose Route Admin Location Dispensed Lot Number Expiration Date [facility] Poker Machine Attendant 5 mL topical mL Assessment & Plan Assessment & Plan (1) Tinea unguium: Code(s): B35.1 - Tinea unguium Category: Medical Plan: * Nail biopsy performed of right 5th toe nail. * Discussed treatment options including topical treatment versus oral antifungal medications. * Explained that oral antifungals such as terbinafine (Lamisil) may cause gastrointestinal upset, headache, rash, taste disturbances, and hepatotoxicity. Baseline and monthly liver function monitoring is recommended during therapy. Patients should be advised to report symptoms such as jaundice, dark urine, or persistent nausea. * Patient was counseled on the importance of anti-fungal foot hygiene, including daily washing and thorough drying of feet, regular changing of socks, and use of breathable footwear. Recommended antifungal sprays shoes. Education provided on keeping toenails trimmed and clean to reduce risk of fungal infections. Preventive strategies discussed to minimize recurrence of fungal infections. * The patient elected topical treatment. We will discussed treatment options at next visit after nail clipping results return. (2) Tinea pedis: Code(s): B35.3 - Tinea pedis Category: Medical Qualifiers: Laterality: bilateral Qualified Code(s): B35.3 - Tinea pedis Plan: * Rx clotrimazole ointment (3) Ingrown toenail of right foot: Code(s): L60.0 - Ingrowing nail Category: Medical Plan: * performed slant back procedure right medial hallux nail border. * Patient may require a partial nail avulsion in the future. Orders: Orders Surgical Today B35.1 - Tinea unguium AMB Debridement/Avulsion Podiatry Today B35.1 - Tinea unguium, L60.0 - Ingrowing nail Fungus Cult Hair/Skin/Nail Today B35.1 - Tinea unguium Medications: New clotrimazole 1% Applied to bottom of feet twice a day. 1 appl topical BID 15 grams 3RF athle te's foot 4 weeks B35.3 - Tinea pedis lidocaine HCl 2% 5 mL topical ONCE 5 mL 0RF B35.1 - Tinea unguium, L60.0 - Ingrowing nail Coding Level of Care Code New Pt Level 4 (44231) Diagnoses Tinea unguium B35.1 Tinea pedis of both feet B35.3 Laterality: bilateral Ingrown toenail of right foot L60.0 CPT Codes Skin Debridement - CPT: 36632-Yxnyqpeikyz of Nail 6+ ([id number]) Time Spent (min) 50
== END 2025-01-29 08:50 | disposition home or self-care (01) ==
LOC: HO.HPODS 07:50
PROVIDERS: PCP Family Medicine; Visit Provider Student in an Organized Health Care Education/Training Program
DX: B35.1 Tinea unguium (principal); B35.3 Tinea pedis; L60.0 Ingrowing nail
CPT/HCPCS: 11721; 99203

== ENCOUNTER 2025-01-29 08:39 | Outpatient (REF) | payer BC, SELFPAY | END 2025-01-29 08:40 | disposition home or self-care (01) | LOC: HO.LNP 08:39 | PROVIDERS: Visit Provider Student in an Organized Health Care Education/Training Program | DX: B35.1 Tinea unguium (principal); B35.3 Tinea pedis; L60.0 Ingrowing nail | CPT/HCPCS: 11721; 87101; 87220; 88304; 88312 ==

== ENCOUNTER 2025-02-26 08:11 | Outpatient (AMB) | payer BC, SELFPAY ==
--- NOTE | 2025-02-26 08:20 | A.OFFVIS_ITS ---
Vital Signs 02/26/25 08:32 Height 6 ft Weight 181 lb BMI 24.5 Intake Visit Reasons: review nail biopsy results Intake Note: Sabino is a 54 year old male who presents today for a follow up on his nail biopsy results. Patient denies experiencing pain and has no further questions or concerns at this time Allergies No Known Allergies Allergy (Verified 02/26/25 08:32) environmental Allergy (Mild, Uncoded 12/29/24 11:50) hay fever, watery eyes. HPI HPI review nail biopsy results: Details: The patient is a 54-year-old male no pertinent past medical history returns for 1 month follow up evaluation of painful ingrowing nails. The patient has been applying the topical antifungal cream and has noticed resolution of his athlete's foot. History: The patient reports having nail abnormalities for approximately 20 years, with the fungal infection starting about a year ago. He has attempted uznb-yay-tekmuul treatments, including a nail mauritian-like solution for three weeks, which did not yield significant improvement. 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 He also reports experiencing athlete's foot. 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 - Exercise: The patient walks daily, approximately twice a day. [facility] Medical History (Updated 01/29/25 @ 09:03 by Edmundo Lewis DPM) Hyperlipidemia GERD (gastroesophageal reflux disease) Smoker Tennis elbow syndrome Surgical History History of left knee surgery Family History Mother Substance use disorder Father No problems noted. Sister Substance use disorder Social History Household Members: Spouse and Family Both parents involved: No Caregiver staying overnight: No Housing: House Are you a primary senior care assistant to a significant other at home: No Do you presently have visiting nurse or other home services: No 75 years or older and lives alone: No Alcohol intake: current Alcohol intake frequency: holidays/special occasions only Alcohol type: beer Patient Tobacco Use Status: Current everyday Tobacco user Tobacco use type: Cigarette Cigarette Packs Per Day: 0.5 e-Cigarette/Vaping Use: Never Used Second Hand Smoke Exposure: No service: Yes Current occupational status: employed 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 Interdigital spaces: Clear, no maceration or fungal infection. Nails: thickened elongated dystrophic toenails x5 right foot. Mild ingrown lateral border right hallux. No erythema or clinical signs of infection. Neuro: Protective sensation grossly intact to bilateral lower extremities Msk: Deformities: No evidence of hammertoes, bunions or other structural abnormalities. Muscle strength: 5/5 in all muscle groups. Gait: Normal, no antalgic or steppage gait observed. Footwear Assessment: Shoes inspected; appropriate fit, no excessive wear, or foreign objects noted. Results Reviewed Results Reviewed: Fungus Cult Hair/Skin/Nail Final 02/22/25-1650 Fungus present on culture. Does not resemble a dermatophyte. Multiple morphologic types. Result: Trichophyton rubrum Assessment & Plan Assessment & Plan (1) Tinea unguium: Code(s): B35.1 - Tinea unguium Category: Medical Plan: * Reviewed right 5th toe nail biopsy with the patient * Discussed treatment options including topical treatment versus oral antifungal medications. * Explained that oral antifungals such as terbinafine (Lamisil) may cause gastrointestinal upset, headache, rash, taste disturbances, and hepatotoxicity. Baseline and monthly liver function monitoring is recommended during therapy. Patients should be advised to report symptoms such as jaundice, dark urine, or persistent nausea. * Patient was counseled on the importance of anti-fungal foot hygiene, including daily washing and thorough drying of feet, regular changing of socks, and use of breathable footwear. Recommended antifungal sprays shoes. Education provided on keeping toenails trimmed and clean to reduce risk of fungal infections. Preventive strategies discussed to minimize recurrence of fungal infections. * Rx ciclopirox. Instructions given: Apply to fungal toenails daily. Remove build-up at the end of the week. * Follow up in 3 months (2) Tinea pedis: Code(s): B35.3 - Tinea pedis Category: Medical Qualifiers: Laterality: bilateral Qualified Code(s): B35.3 - Tinea pedis Plan: * Resolved (3) Ingrown toenail of right foot: Code(s): L60.0 - Ingrowing nail Category: Medical Plan: * No pain or further worsening clinical signs of at this time * Patient may require a partial nail avulsion in the future. Medications: New ciclopirox 8% Apply to fungal toenails daily. Remove build-up at the end of the week. 1 appl topical BEDTIME 6.6 mL 3RF Onychomycosis 4 months B35.1 - Tinea unguium Coding Level of Care Code Est Pt Level 3 (28938) Diagnoses Tinea unguium B35.1 Tinea pedis of both feet B35.3 Laterality: bilateral Ingrown toenail of right foot L60.0 Time Spent (min) 30
[2025-02-26 08:32] VITALS: BMI 24.5
== END 2025-02-26 08:40 | disposition home or self-care (01) ==
LOC: HO.HPODS 08:12
PROVIDERS: PCP Family Medicine; Visit Provider Student in an Organized Health Care Education/Training Program
DX: B35.1 Tinea unguium (principal); B35.3 Tinea pedis; L60.0 Ingrowing nail
CPT/HCPCS: 99213

== ENCOUNTER 2025-04-14 08:20 | Outpatient (REF) | payer BC, SELFPAY ==
[2025-04-14 09:10] LABS: Appearance Urine Clear; Glucose Urine UA Negative (Negative); PH 5.5 (5.0-9.0); Specific Gravity - Urine 1.025 (1.005-1.025)
[2025-04-14 09:41] LABS: Alanine Aminotransferase 13 U/L (0-40); Albumin Level 4.1 g/dL (3.5-5.0); Alkaline Phosphatase 78 U/L (39-117); Anion Gap 11 (12-20); Aspartate Amino Transferase 24 U/L (5-37); Blood Urea Nitrogen 15 mg/dL (9-16); Calcium 8.7 mg/dL (8.4-10.2); Carbon Dioxide 25 mmol/L (22-29); Chloride 106 mmol/L (96-108); Cholesterol 168 mg/dL (<200); Estimated Glomerular Filt Rate > 60; HDL Cholesterol 34 mg/dL (>40); Potassium 4.3 mmol/L (3.3-5.1); Sodium 138 mmol/L (135-145); Total Protein 6.7 g/dL (6.5-8.0); Triglycerides 202 mg/dL (<150)
== END 2025-04-14 08:21 | disposition home or self-care (01) ==
LOC: HO.LAB 08:20
PROVIDERS: PCP Family Medicine; Visit Provider Nurse Practitioner Family
DX: Z00.00 Encounter for general adult medical examination without abnormal findings (principal); R73.01 Impaired fasting glucose; E78.5 Hyperlipidemia, unspecified
CPT/HCPCS: 36415; 80053; 80061; 81003

== ENCOUNTER 2025-04-16 08:11 | Outpatient (AMB) | payer BC, SELFPAY ==
--- NOTE | 2025-04-16 08:14 | MHC.PC.OV ---
Vital Signs 04/16/25 08:20 Height 6 ft Weight 189 lb 8 oz BMI 25.7 BP 116/77 Blood Pressure Location Lt brachial Position Sitting Respiration 16 Pulse 89 Pulse Source Pulse Oximeter Temp 98.0 F Temp Source Oral Pulse Oximetry (%) 97 Oxygen Delivery Method Room Air Intake Visit Reasons: [address] Dumas lipids/BPH/IFG labs 1 week before Intake Note: patient here for 3 month follow up on lipids, BPH, IFG and labs Internet Systems Administrator Required: No Allergies No Known Allergies Allergy (Verified 04/16/25 08:17) environmental Allergy (Mild, Uncoded 04/16/25 08:17) hay fever, watery eyes. Medication List - Last Reconciled 04/16/25 by Hugh Raphael MD ciclopirox 8% 1 appl topical BEDTIME 4 months clotrimazole 1% 1 appl topical BID 4 weeks ezetimibe (Zetia) 10 mg PO DAILY 90 days Tobacco use date assessed: 04/16/25 Dental Screening Dental Screen Date: 04/16/25 Did you have a dental visit in the last 12 months?: Yes Did you have a dental problem in the last 6 months where you did not have access to dental care?: No Was dental information given to patient?: Patient has dentist HPI [address] Dumas lipids/BPH/IFG labs 1 week before HPI Details Patient presents to follow-up hyperlipidemia, elevated fasting blood sugar, erectile dysfunction onychomycosis and also had episode of left lower quadrant pain. Patient had stopped Zetia and LDL cholesterol climbed considerably. He has been back on Zetia and LDL is at goal of less than 100. A1c has climbed from 5.2% to 5.5%. He notes he has been eating more carbs lately. Patient saw web assistant. He has lacquer that he has to put on his toes now. Onychomycosis has been improving with it however. Patient notes that sildenafil for ED was sometimes helping and sometimes not. Patient had an episode of severe left lower quadrant pain followed by flatulence and gas. He notes this may have been brought on by milk and cheese products. [facility] Medical History (Updated 04/16/25 @ 09:10 by Hugh Raphael MD) Hyperlipidemia GERD (gastroesophageal reflux disease) Smoker Tennis elbow syndrome Surgical History (Reviewed 09/21/23 @ 08:26 by Lisa Lawrence [facility] History of left knee surgery Family History Mother Substance use disorder Father No problems noted. Sister Substance use disorder Social History Household Members: Spouse and Family Both parents involved: No Caregiver staying overnight: No Housing: House Are you a primary insurance healthcare representative to a significant other at home: No Do you presently have visiting nurse or other home services: No 75 years or older and lives alone: No Alcohol intake: current Alcohol intake frequency: holidays/special occasions only Alcohol type: beer Patient Tobacco Use Status: Current everyday Tobacco user Tobacco use type: Cigarette Cigarette Packs Per Day: 0.5 e-Cigarette/Vaping Use: Never Used Second Hand Smoke Exposure: No service: Yes Current occupational status: employed 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 Current occupational exposures/hazards: No Cognitive needs: No Hearing needs: No Vision needs: No Questionnaire Thrive Questionnaire Date Thrive assessed: 05/29/24 I am a: Patient What is your living situation today?: I have a steady place to live Within the past 12 months, did the food you bought not last and you didn't have the money to get more?: Never true Within the past 12 months, did you worry whether your food would run out before you got money to buy more?: Never true Do you have trouble paying for medicines?: No Do you have trouble getting transportation to medical appointments?: No Do you have trouble paying your heating and electricity bill?: No Do you have trouble taking care of your child, family member or friend?: No Do you have trouble with day-to-day activities such as bathing, preparing meals, shopping, managing finances, etc.?: No Are you currently unemployed and looking for a job?: No Are you interested in more education?: I choose not to answer this question Currently or been in a relationship where the following occur: No concerns reported THRIVE Score: 0 YONATAN-7 AMB Questionnaire YONATAN-7 Date YONATAN - 7 assessed: 12/29/24 Source: Developed by Drs. Allen Lao, Susy Copeland, Alton Robison and colleagues, with an educational suman from [employer]. Review of Systems Const Denies chills, Denies fatigue, Denies fever(s), Denies headache(s) and Denies weakness ENT Denies dizziness and Denies headache(s) Card Denies chest pain, Denies lightheadedness, Denies dyspnea and Denies other (Palpitations) Resp Denies cough, Denies dyspnea, Denies wheezing and Denies other ( shortness of breath) Musc Denies numbness and Denies tingling Neuro Denies dizziness, Denies headache(s), Denies numbness, Denies tingling, Denies paresthesias and Denies weakness Psych Denies anxiety and Denies depression Endo Denies fatigue Aller/Immun Denies wheezing Physical exam (Primary Care) Vital Signs: Last Vital Signs Temp 98.0 F 04/16/25 08:20 Pulse 89 04/16/25 08:20 Resp 16 04/16/25 08:20 BP 116/77 04/16/25 08:20 Pulse Ox 97 04/16/25 08:20 Oxygen Delivery Method Room Air 04/16/25 08:20 BMI result Body Mass Index 25.7 Tobacco/Smoking Status: Tobacco use Status Tobacco use date assessed 04/16/25 04/16/25 08:23 Patient Tobacco Use Status Current everyday Tobacco 04/16/25 08:23 Tobacco use type Cigarette 04/16/25 08:23 e-Cigarette/Vaping Use Never Used 04/16/25 08:23 Thrive Assessment: Date of Thrive Assessment Date Thrive assessed 05/29/24 04/16/25 08:23 Currently or been in a relationship where the following occur: No concerns reported Const General: no acute distress and well developed Nutritional Appearance: well nourished Orientation/consciousness: patient oriented x3 [facility] Head: Yes normocephalic and Yes atraumatic Eyes General: appearance normal, both eyes and all related structures Pupils: Equal, round and reactive pupils present EOM: EOMs intact bilaterally Resp Effort & Inspection: normal respiratory effort Auscultation: clear to auscultation bilaterally Cardio Rate: regular rate Rhythm: regular rhythm Heart sounds: S1 normal heart sound present, S2 normal heart sound present, no gallops, no murmurs and no rubs Neuro General: patient oriented x3 and gait normal Cranial nerves: Yes Equal, round and reactive pupils present Psych Affect: normal affect Results AMB Hemoglobin A1c AMB Hemoglobin A1c 5.5 % Last Edit by ROWDY Odonnell on 04/16/25 08:57 Results Reviewed Results Reviewed: Laboratory Last Values Hgb A1c (Clinic) 5.5 % (4.0-6.0) 04/16/25 08:55 Coding Level of Care Code Est Pt Level 5 (28404) Diagnoses Mixed hyperlipidemia E78.2 Hyperlipidemia type: mixed hyperlipidemia Elevated fasting glucose R73.01 Left lower quadrant pain R10.32 Erectile dysfunction, unspecified erectile dysfunction type N52.9 Erectile dysfunction type: unspecified Onychomycosis B35.1 Assessment & Plan Assessment & Plan (1) Hyperlipidemia: Code(s): E78.5 - Hyperlipidemia, unspecified Category: Medical Qualifiers: Hyperlipidemia type: mixed hyperlipidemia Qualified Code(s): E78.2 - Mixed hyperlipidemia Plan: LDL cholesterol now back in controlled range. Continue Zetia HDL is too low. Increase ratio of Mot[place] 3 fatty acids in diet Encouraged exercise Will continue to monitor (2) Elevated fasting glucose: Code(s): R73.01 - Impaired fasting glucose Category: Medical Plan: A1c has climbed to 5.5%. Top of normal range. Continue working on a diet lower in saturated fats and cholesterol (3) Left lower quadrant pain: Code(s): R10.32 - Left lower quadrant pain Category: Medical Plan: Episode of left lower quadrant pain followed by gas and flatulence He notes this was likely triggered by milk products He will try Lactaid Smaller meals Avoid trigger foods (4) Erectile dysfunction: Code(s): N52.9 - Male erectile dysfunction, unspecified Category: Medical Qualifiers: Erectile dysfunction type: unspecified Qualified Code(s): N52.9 - Male erectile dysfunction, unspecified Plan: Some variability with sildenafil Try Cialis (5) Onychomycosis: Code(s): B35.1 - Tinea unguium Category: Medical Plan: Improving Continue antifungal lacquer on nails Follow-up with podiatry as recommended Orders: Orders AMB Hemoglobin A1c Today R73.01 - Impaired fasting glucose Comprehensive Coleman. Panel Fast Today E78.2 - Mixed hyperlipidemia, Z00.00 - Encounter for general adult medical examination without abnormal findings Hemoglobin A1c Today R73.01 - Impaired fasting glucose LDL Cholesterol Direct Today E78.2 - Mixed hyperlipidemia, E78.5 - Hyperlipidemia, unspecified Medications: New tadalafil (Cialis) administer approximately 30min before sexual activity; do not use more than 1 dose per 24hrs 10 mg PO DAILY PRN 30 tabs 3RF sexual activity 30 days Refilled ezetimibe (Zetia) 10 mg PO DAILY 90 tabs 2RF 90 days
[2025-04-16 08:20] VITALS: BP 116/77; PULSE 89; RESP 16; TEMP 36.7; O2SAT 97; BMI 25.7
== END 2025-04-16 09:06 | disposition home or self-care (01) ==
LOC: HO.HMCFM 08:12
PROVIDERS: PCP Family Medicine; Visit Provider Family Medicine
DX: E78.2 Mixed hyperlipidemia (principal); R73.01 Impaired fasting glucose; R10.32 Left lower quadrant pain; N52.9 Male erectile dysfunction, unspecified; B35.1 Tinea unguium

== ENCOUNTER → 2025-04-16 08:11 | Outpatient (BNVA) | payer BC, SELFPAY | PROVIDERS: PCP Family Medicine; Visit Provider Family Medicine | DX: R73.01 Impaired fasting glucose (principal) | CPT/HCPCS: 83036 ==